=== PATIENT | male | born 1975 | race Caucasian/White ===

== ENCOUNTER 2022-05-11 17:07 | Inpatient (IN) | payer BC, SELFPAY ==
[2022-05-11] VITALS (8 sets, daily range): BP systolic 77–146; BP diastolic 43–106; PULSE 107–113; RESP 20–26; TEMP 37.4; O2SAT 90–95; BMI 27.6
--- NOTE | 2022-05-11 17:17 | CTR_ITS ---
PROCEDURE INFORMATION: Exam: CT Head Without Contrast Exam date and time: 05/11/2022 5:34 PM Age: 47 years old Clinical indication: Pain; Headache not specified TECHNIQUE: Imaging protocol: Computed tomography of the head without contrast. Radiation optimization: All CT scans at this facility use at least one of these dose optimization techniques: automated exposure control; mA and/or kV adjustment per patient size (includes targeted exams where dose is matched to clinical indication); or iterative reconstruction. COMPARISON: No relevant prior studies available. RADIATION DOSE METRICS: Total DLP (mGy-cm): 712.75 FINDINGS: Brain: Normal. No hemorrhage. Unremarkable white matter. No mass effect. Cerebral ventricles: No ventriculomegaly. Paranasal sinuses: Opacified right ethmoid air cell. Mucosal thickening in the left frontal sinus. The other sinuses are clear. Mastoid air cells: Visualized mastoid air cells are well aerated. Bones/joints: Unremarkable. No acute fracture. Soft tissues: Unremarkable. CT/CT head wo con* [id number] IMPRESSION: 1. No acute intracranial abnormality.
--- NOTE | 2022-05-11 17:17 | CTR_ITS ---
PROCEDURE INFORMATION: Exam: CTA Head With Contrast, Arteriography Exam date and time: 05/11/2022 5:37 PM Age: 47 years old Clinical indication: Headache and other: Vomiting; Additional info: Headache, posible sah TECHNIQUE: Imaging protocol: Computed tomographic angiography of the head with contrast. Exam focused on the arteries. 3D rendering (Not supervised by radiologist): MIP and/or 3D reconstructed images were created by the technologist. Radiation optimization: All CT scans at this facility use at least one of these dose optimization techniques: automated exposure control; mA and/or kV adjustment per patient size (includes targeted exams where dose is matched to clinical indication); or iterative reconstruction. Contrast material: OMNIPAQUE 350; Contrast volume: 95 ml; Contrast route: INTRAVENOUS (IV); COMPARISON: CT head wo con* [id number] 05/11/2022 5:34 PM RADIATION DOSE METRICS: Total DLP (mGy-cm): 2238.87 FINDINGS: ANTERIOR CIRCULATION: Right internal carotid artery: Unremarkable. Intracranial segment is patent with no significant stenosis. No aneurysm. Right middle cerebral artery: Unremarkable. No occlusion or significant stenosis. No aneurysm. Right anterior cerebral artery: Unremarkable. No occlusion or significant stenosis. No aneurysm. Left internal carotid artery: Unremarkable. Intracranial segment is patent with no significant stenosis. No aneurysm. Left middle cerebral artery: Unremarkable. No occlusion or significant stenosis. No aneurysm. Left anterior cerebral artery: Unremarkable. No occlusion or significant stenosis. No aneurysm. POSTERIOR CIRCULATION: Right vertebral artery: Unremarkable. No occlusion or significant stenosis. No aneurysm. Left vertebral artery: Unremarkable. No occlusion or significant stenosis. No aneurysm. Basilar artery: Unremarkable. No occlusion or significant stenosis. No aneurysm. Right posterior cerebral artery: Unremarkable. No occlusion or significant stenosis. No aneurysm. Left posterior cerebral artery: Unremarkable. No occlusion or significant stenosis. No aneurysm. Brain: No definite mass, mass effect, or midline shift. Cerebral ventricles: No ventriculomegaly. Bones/joints: Unremarkable. No acute fracture. Soft tissues: Unremarkable. PROCEDURE INFORMATION: Exam: CTA Neck With Contrast Exam date and time: 05/11/2022 5:37 PM Age: 47 years old Clinical indication: Headache and other: Vomiting; Additional info: Headache, posible sah TECHNIQUE: Imaging protocol: Computed tomographic angiography of the neck with contrast. 3D rendering (Not supervised by radiologist): MIP and/or 3D reconstructed images were created by the technologist. Radiation optimization: All CT scans at this facility use at least one of these dose optimization techniques: automated exposure control; mA and/or kV adjustment per patient size (includes targeted exams where dose is matched to clinical indication); or iterative reconstruction. Contrast material: OMNIPAQUE 350; Contrast volume: 95 ml; Contrast route: INTRAVENOUS (IV); COMPARISON: CT head wo con* [id number] 05/11/2022 5:34 PM RADIATION DOSE METRICS: Total DLP (mGy-cm): 2238.87 FINDINGS: Right common carotid artery: No stenosis. No dissection or occlusion. Right internal carotid artery: No stenosis of the extracranial segment. No dissection or occlusion. Right external carotid artery: No occlusion or stenosis of the origin. Left common carotid artery: No stenosis. No dissection or occlusion. Left internal carotid artery: No stenosis of the extracranial segment. No dissection or occlusion. Left external carotid artery: No occlusion or stenosis of the origin. Right vertebral artery: No stenosis. No dissection or occlusion. Left vertebral artery: No stenosis. No dissection or occlusion. Soft tissues: Normal. No significant soft tissue swelling. Bones/joints: No acute fracture. CT/CT angio headneck* [id number] IMPRESSION: No large vessel stenosis or occlusion. IMPRESSION: No stenosis or occlusion. REFERENCES: NASCET CRITERIA. The degree of internal carotid artery stenosis is based on NASCET criteria. Normal is no stenosis. Mild is less than 50% stenosis. Moderate is 50-69% stenosis. Severe is 70% to 99% stenosis. Total occlusion is no detectable patent lumen.
--- NOTE | 2022-05-11 17:17 | XRR_ITS ---
PROCEDURE INFORMATION: Exam: XR Chest Exam date and time: 05/11/2022 5:26 PM Age: 47 years old Clinical indication: Shortness of breath and other: N/v; Additional info: AMS TECHNIQUE: Imaging protocol: XR of the chest. Views: 1 view. COMPARISON: No relevant prior studies available. FINDINGS: Lungs: Mild atelectasis or scar in the left lung base. The right lung is clear. Pleural spaces: Unremarkable. No pleural effusion. No pneumothorax. Heart/Mediastinum: Unremarkable. No cardiomegaly. Bones/joints: Unremarkable. XR/XR chest 1V portable [id number] IMPRESSION: No acute finding.
--- NOTE | 2022-05-11 17:19 | ECG_ITS ---
[facility] Test Date: 2022-05-11 Pat Name: Kedar Coleman Department: Room: Gender: Male [employer]er: : 1975 Requested By: Norberto iMlligan Order Number: [id number] Galindo MD: Cj Sandoval M.D. Measurements Intervals [place] Rate: 111 P: 77 CO: 182 QRS: 57 QRSD: 96 T: 78 QT: 336 QTc: 457 Interpretive Statements SINUS TACHYCARDIA POSSIBLE INFERIOR MYOCARDIAL INFARCTION , PROBABLY OLD [30 ms Q WAVE IN II/aVF] No previous ECG available for comparison Electronically Signed On 05-11-2022 18:29:46 CDT by Cj Sandoval M.D. [id number]
[2022-05-11 17:22] LABS: Glucose Point of Care 105 mg/dL (70-110)
[2022-05-11] MEDS: sodium chloride 0.9% 1,000 ML 999 ML IV ×4 (17:27→18:46)
--- NOTE | 2022-05-11 17:29 | W.ED.GENADLT ---
HPI - General Adult General: Chief complaint: Nausea/Vomiting/Diarrhea Stated complaint: SOB, n/v Time Seen by Provider: 05/11/22 17:12 History of Present Illness: Patient is a 47-year-old male with with no significant past medical history presents emergency room with generalized weakness, diarrhea, headache, and fatigue. Patient tells me that yesterday night he had an episode of headache prior to going to sleep. This morning, patient has another episode of headache around 9 AM this morning. Since then, patient has not been feeling well. Patient reports significant diarrhea earlier today. Patient [place] work [place] the train when he felt very lightheaded and called his . Patient reports not feeling well and was brought to the emergency room. On arrival, patient reports mild cough and ongoing headache. Patient denies any fever or chills, runny nose, sore throat, chest pain, shortness of breath, abdominal complaints, complaints. Patient reports nausea and vomiting. Patient denies any sick contact. Patient denies any melena/hematochezia. Patient has had 2 episodes of emesis today. Earlier in triage, patient was noted to have a blood pressure 70/40 and was brought back to the emergency room immediately. The blood pressure improved to 170/111 without any intervention. Onset: yesterday night Duration:ongoing Location:home Severity:moderate Associated symptoms: Reports malaise, nausea and vomiting; Deny chest pain, dyspnea, rash or palpitations Review of Systems Const: Reports: fatigue and malaise; Denies: fever(s) or chills Eyes: Denies: change in vision ENMT: Denies: mouth pain Card: Denies: chest pain or palpitations Resp: Denies: dyspnea or non-productive cough GI: Reports: nausea, vomiting and diarrhea; Denies: abdominal pain : Denies: dysuria Musc: Denies: extremity pain Skin/Breast: Denies: rash or new lesions Neuro: Denies: weakness in extremities Psych: Reports: other (Normal mood) Marques/Lymph: Denies: easy bruising PFS ED PFSH: Medical History (Updated 05/15/22 @ 00:00 by ) Hypertension Surgical History (Updated 05/11/22 @ 22:05 by Kedar Alonso MD) History of appendectomy Family History (Updated 05/11/22 @ 22:06 by Kedar Alonso MD) Father Hypertension Social History (Updated 05/11/22 @ 22:06 by Kedar Alonso MD) Smoking and tobacco status: never smoked Alcohol intake: never Substance/Drug Use: never Physical Exam Const: COMMON NORMALS: alert HENMT: COMMON NORMALS: atraumatic HEAD & SCALP: atraumatic MOUTH: moist mucous membranes abnormal Eye: COMMON NORMALS: EOMs intact bilaterally and conjunctivae normal CONJUNCTIVA: Yes conjunctivae normal Neck/C-Spine: COMMON NORMALS: full ROM and supple Resp: COMMON NORMALS: normal respiratory effort and clear to auscultation bilaterally AUSCULTATION: clear to auscultation bilaterally Cardio: RATE: tachycardic GI: COMMON NORMALS: Soft to palpation and non-tender PALPATION: Yes Soft to palpation Extremity: COMMON NORMALS: full ROM Neuro: SENSORIUM/ORIENTATION: Yes alert MOTOR EXAM: No Abnormal motor strength present and Other motor observations present (no focal motor deficits) Psych: COMMON NORMALS: speech normal SPEECH: Yes normal speech MOOD & AFFECT: Yes euthymic mood Skin: NARRATIVE SKIN EXAM: +facial and neck flush Course Vital Signs: Vital signs: Vital Signs Temperature 97.9 F 05/14/22 11:11 Pulse Rate 74 05/14/22 11:11 Respiratory Rate 18 05/14/22 11:11 Blood Pressure 141/86 05/14/22 11:11 Pulse Oximetry 97 05/14/22 11:11 [facility] - General Adult Medical Decision Making 47-year-old male with any without any significant past medical history presenting to the emergency room with complaints of diarrhea, headache, generalized weakness nausea and vomiting since yesterday night. On physical exam, patient appears to be tachycardic and dry on exam. Patient appears to be flushed on the face and neck. Patient received 3 L of fluids. Patient complains of headache and multiple episode of emesis in the emergency room. CT head and CTA head and neck negative for any signs of dissection acute intracranial bleed or subarachnoid hemorrhage. Patient reports that his headache appears to be improved with IVF, Reglan, Benadryl, magnesium sulfate. After 3 L fluid, patient continues to be tachycardic at which point decision was made to order D-dimer/TSH and free T4. D-dimer appears to be within normal limit. Do not suspect PE. TSH/T4 within normal. Patient's headache now improved and almost gone after repeat morphine. Patient's respiratory panel came back positive for COVID. Patient noted to be satting at 88 to 89% on room air. Patient required 2 L of oxygen and this is a new oxygen requirement. At the present time, patient given patient continues persistent tachycardia and new oxygen requirement, as well as concern for dehydration inability to tolerate p.o., patient will be admitted to the hospital for rehydration. At 9 PM, performed shared decision making with family. I discussed case with patient and his . I have explained to them that patient is at risk for subarachnoid hemorrhage is very low given the fact the patient has a normal CT scan and normal CTA head and neck. Given the fact the patient also has generalized weakness, cough, diarrhea, and positive swab for COVID, headache improvement, today's presentation is unlikely to be subarachnoid brain bleed. I explained the risk of not performing LP and patient at this time elects to not undergo lumbar puncture as patient and his agree that symptoms are more consistent with COVID. However, if patient continues to have persistent headache, we will reconsider the need for LP and possible MRI. Disposition: admission Lab Data : 05/14/22 05:10 05/14/22 05:10 Radiology Impressions Chest X-Ray 05/11/22 17:17 IMPRESSION: No acute finding. Head CT 05/11/22 17:17 IMPRESSION: 1. No acute intracranial abnormality. Head/Neck CTA 05/11/22 17:17 IMPRESSION: No large vessel stenosis or occlusion. IMPRESSION: No stenosis or occlusion. REFERENCES: NASCET CRITERIA. The degree of internal carotid artery stenosis is based on NASCET criteria. Normal is no stenosis. Mild is less than 50% stenosis. Moderate is 50-69% stenosis. Severe is 70% to 99% stenosis. Total occlusion is no detectable patent lumen. Lumbar Puncture Fluoroscopy 05/12/22 08:00 IMPRESSION: Fluoroscopically guided lumbar puncture. No immediate complications Laboratory Results WBC 5.2 10^3/uL (4.0-10.0) 05/12/22 00:18 RBC 5.34 10^6/uL (4.1-5.3) H 05/12/22 00:18 Hgb 15.7 g/dL (11.7-16.6) 05/12/22 00:18 Hct 46.2 % (42.0-52.0) 05/12/22 00:18 MCV 86.5 fl (80-94) 05/12/22 00:18 MCH 29.4 pg (28.0-34.0) 05/12/22 00:18 MCHC 34.0 g/dL (30.0-36.0) 05/12/22 00:18 RDW 13.2 % (12.1-15.1) 05/12/22 00:18 Plt Count 205 10^3/cmm (130-400) 05/12/22 00:18 MPV 10.9 fL (7.4-10.4) H 05/12/22 00:18 Neut % (Auto) 79.2 % 05/12/22 00:18 Lymph % (Auto) 11.8 % 05/12/22 00:18 Elk % (Auto) 7.0 % 05/12/22 00:18 Eos % (Auto) 0.2 % 05/12/22 00:18 Baso % (Auto) 0.4 % 05/12/22 00:18 Neut # (Auto) 4.09 10^3/uL (1.8-7.7) 05/12/22 00:18 Lymph # (Auto) 0.6 10^3/uL (0.8-4.8) L 05/12/22 00:18 Elk # (Auto) 0.4 10^3/uL (0.2-0.9) 05/12/22 00:18 Eos # (Auto) 0.0 10^3/uL (0.0-0.8) 05/12/22 00:18 Baso # (Auto) 0.0 10^3/uL (0.0-0.1) 05/12/22 00:18 Nucleated RBC % (auto) 0 % 05/12/22 00:18 Nucleated RBCs # 0.0 /100WBC 05/12/22 00:18 D-Dimer 0.29 ug/mIFEU (0-0.59) 05/11/22 19:35 Sodium 137 mmol/L (136-145) 05/12/22 00:18 Potassium 3.8 mmol/L (3.5-5.1) 05/12/22 00:18 Chloride 105 mmol/L (98-107) 05/12/22 00:18 Carbon Dioxide 20 mmol/L (22-29) L 05/12/22 00:18 Anion Gap 15.8 (5-19) 05/12/22 00:18 BUN 7 mg/dL (6-20) 05/12/22 00:18 Creatinine 0.7 mg/dL (0.7-1.2) 05/12/22 00:18 GFR Calculation 120.4 mL/min (90-130) 05/12/22 00:18 Glucose 105 mg/dL (65-115) 05/12/22 00:18 POC Glucose 105 mg/dL (70-110) 05/11/22 17:18 Calculated Osmolality 282 mOsm/kg (285-295) L 05/12/22 00:18 Calcium 8.0 mg/dL (8.5-10.5) L 05/12/22 00:18 Phosphorus 2.3 mg/dL (2.5-4.5) L 05/12/22 00:18 Magnesium 2.1 mg/dL (1.7-2.3) 05/12/22 00:18 Iron 37 ug/dL (59-158) L 05/12/22 00:18 TIBC 239 mcg/dl 05/12/22 00:18 % Saturation 15.4 % (20-50) L 05/12/22 00:18 Unsat Iron Binding 202 ug/dL (112-347) 05/12/22 00:18 Total Bilirubin 1.2 mg/dL (0.15-1.2) 05/12/22 00:18 AST 47 U/L (0-40) H 05/12/22 00:18 ALT 88 U/L (0-41) H 05/12/22 00:18 Alkaline Phosphatase 69 IU/L (40-130) 05/12/22 00:18 Creatine Kinase 66 U/L (39-308) 05/11/22 17:20 Troponin T Baseline 6 ng/L (0-15) 05/11/22 17:20 Troponin T 120 Minute 7.60 ng/L (0-15) 05/11/22 19:35 Delta Troponin T 1.60 ABS# (0-10) 05/11/22 19:35 C-Reactive Protein 14.6 mg/L (0.0-4.9) H 05/12/22 00:18 Total Protein 6.8 g/dL (6.6-8.7) 05/12/22 00:18 Albumin 3.9 g/dL (3.5-5.2) 05/12/22 00:18 Globulin 2.9 g/dL (1.3-4.6) 05/12/22 00:18 Lipase 16 U/L (13-60) 05/11/22 17:20 Procalcitonin 0.22 ng/mL (0-0.5) 05/11/22 17:20 TSH 0.84 uIU/mL (0.27-4.20) 05/11/22 19:35 Free T4 1.18 ng/dL (0.82-1.77) 05/11/22 19:35 Nasal Influ A H1 2009 PCR Not detected (NOT DETECT) 05/11/22 18:26 Adenovirus (PCR) Not detected (NOT DETECT) 05/11/22 18:26 C. pneumoniae DNA (PCR) Not detected (NOT DETECT) 05/11/22 18:26 Coronavirus 229E (PCR) Not detected (NOT DETECT) 05/11/22 18:26 Human Metapneumovir PCR Not detected (NOT DETECT) 05/11/22 18:26 Influenza A (H1) PCR Not detected (NOT DETECT) 05/11/22 18:26 Influenza A (H3) PCR Not detected (NOT DETECT) 05/11/22 18:26 Influenza Type A (PCR) Not detected (NOT DETECT) 05/11/22 18: Influenza Type B (PCR) Not detected (NOT DETECT) 05/11/22 18:26 M. pneumoniae (PCR) Not detected (NOT DETECT) 05/11/22 18:26 Parainfluenza 1 (PCR) Not detected (NOT DETECT) 05/11/22 18:26 Parainfluenza 2 (PCR) Not detected (NOT DETECT) 05/11/22 18: Parainfluenza 3 (PCR) Not detected (NOT DETECT) 05/11/22 18:26 Parainfluenza 4 (PCR) Not detected (NOT DETECT) 05/11/22 18:26 RSV Type A (PCR) Not detected (NOT DETECT) 05/11/22 18:26 RSV Type B (PCR) Not detected (NOT DETECT) 05/11/22 18:26 Entero/Rhino (PCR) Not detected (NOT DETECT) 05/11/22 18:26 SARS-CoV-2 (PCR) Detected (NOT DETECT) A 05/11/22 18:26 Imaging Data Other Imaging: Radiologist's impression: [address] [place] [address] CT Scan Report Signed Patient: Kedar Coleman Unit #: [id number] : 1975 Age/Sex: 47 / M ADM Date: 05/11/22 Loc: ER Room/Bed: Attending Dr: Ordering Provider/Ordering MD: Norberto Milligan MD Date of Service: 05/11/22 Procedure(s): CT angio headneck* [id number] Accession Number(s): [id number] Report Number: [id number] PROCEDURE INFORMATION: Exam: CTA Head With Contrast, Arteriography Exam date and time: 05/11/2022 5:37 PM Age: 47 years old Clinical indication: Headache and other: Vomiting; Additional info: Headache, posible sah TECHNIQUE: Imaging protocol: Computed tomographic angiography of the head with contrast. Exam focused on the arteries. 3D rendering (Not supervised by radiologist): MIP and/or 3D reconstructed images were created by the technologist. Radiation optimization: All CT scans at this facility use at least one of these dose optimization techniques: automated exposure control; mA and/or kV adjustment per patient size (includes targeted exams where dose is matched to clinical indication); or iterative reconstruction. Contrast material: OMNIPAQUE 350; Contrast volume: 95 ml; Contrast route: INTRAVENOUS (IV);? COMPARISON: CT head wo con* [id number] 05/11/2022 5:34 PM RADIATION DOSE METRICS: Total DLP (mGy-cm): 2238.87 FINDINGS: ANTERIOR CIRCULATION: Right internal carotid artery: Unremarkable. Intracranial segment is patent with no significant stenosis. No aneurysm. Right middle cerebral artery: Unremarkable. No occlusion or significant stenosis. No aneurysm.? Right anterior cerebral artery: Unremarkable. No occlusion or significant stenosis. No aneurysm.? Left internal carotid artery: Unremarkable. Intracranial segment is patent with no significant stenosis. No aneurysm. Left middle cerebral artery: Unremarkable. No occlusion or significant stenosis. No aneurysm.? Left anterior cerebral artery: Unremarkable. No occlusion or significant stenosis. No aneurysm.? POSTERIOR CIRCULATION: Right vertebral artery: Unremarkable. No occlusion or significant stenosis. No aneurysm.? Left vertebral artery: Unremarkable. No occlusion or significant stenosis. No aneurysm.? Basilar artery: Unremarkable. No occlusion or significant stenosis. No aneurysm. Right posterior cerebral artery: Unremarkable. No occlusion or significant stenosis. No aneurysm.? Left posterior cerebral artery: Unremarkable. No occlusion or significant stenosis. No aneurysm.? Brain: No definite mass, mass effect, or midline shift. Cerebral ventricles: No ventriculomegaly. Bones/joints: Unremarkable. No acute fracture. Soft tissues: Unremarkable. PROCEDURE INFORMATION: Exam: CTA Neck With Contrast Exam date and time: 05/11/2022 5:37 PM Age: 47 years old Clinical indication: Headache and other: Vomiting; Additional info: Headache, posible sah TECHNIQUE: Imaging protocol: Computed tomographic angiography of the neck with contrast. 3D rendering (Not supervised by radiologist): MIP and/or 3D reconstructed images were created by the technologist. Radiation optimization: All CT scans at this facility use at least one of these dose optimization techniques: automated exposure control; mA and/or kV adjustment per patient size (includes targeted exams where dose is matched to clinical indication); or iterative reconstruction. Contrast material: OMNIPAQUE 350; Contrast volume: 95 ml; Contrast route: INTRAVENOUS (IV);? COMPARISON: CT head wo con* [id number] 05/11/2022 5:34 PM RADIATION DOSE METRICS: Total DLP (mGy-cm): 2238.87 FINDINGS: Right common carotid artery: No stenosis. No dissection or occlusion. Right internal carotid artery: No stenosis of the extracranial segment. No dissection or occlusion. Right external carotid artery: No occlusion or stenosis of the origin.? Left common carotid artery: No stenosis. No dissection or occlusion. Left internal carotid artery: No stenosis of the extracranial segment. No dissection or occlusion. Left external carotid artery: No occlusion or stenosis of the origin.? Right vertebral artery: No stenosis. No dissection or occlusion. Left vertebral artery: No stenosis. No dissection or occlusion. Soft tissues: Normal. No significant soft tissue swelling. Bones/joints: No acute fracture. CT/CT angio headneck* [id number] IMPRESSION: No large vessel stenosis or occlusion. ? ? IMPRESSION: No stenosis or occlusion. ? REFERENCES: NASCET CRITERIA. The degree of internal carotid artery stenosis is based on NASCET criteria. Normal is no stenosis. Mild is less than 50% stenosis. Moderate is 50-69% stenosis. Severe is 70% to 99% stenosis. Total occlusion is no detectable patent lumen. ? Dictated By: Greg Lechuga Signed By: Greg Lechuga Signed Date/Time: 05/11/22 182 DD/ [address] [place] [address] [address] [address] Scan Report Signed Patient: Kedar Coleman Unit #: [id number] : 1975 Age/Sex: 47 / M ADM Date: 05/11/22 Loc: ER Room/Bed: Attending Dr: Ordering Provider/Ordering MD: Norberto Milligan MD Date of Service: 05/11/22 Procedure(s): CT head wo con* [id number] Accession Number(s): [id number] Report Number: [id number] PROCEDURE INFORMATION: Exam: CT Head Without Contrast Exam date and time: 05/11/2022 5:34 PM Age: 47 years old Clinical indication: Pain; Headache not specified TECHNIQUE: Imaging protocol: Computed tomography of the head without contrast. Radiation optimization: All CT scans at this facility use at least one of these dose optimization techniques: automated exposure control; mA and/or kV adjustment per patient size (includes targeted exams where dose is matched to clinical indication); or iterative reconstruction. COMPARISON: No relevant prior studies available. RADIATION DOSE METRICS: Total DLP (mGy-cm): 712.75 FINDINGS: Brain: Normal. No hemorrhage. Unremarkable white matter. No mass effect. Cerebral ventricles: No ventriculomegaly. Paranasal sinuses: Opacified right ethmoid air cell. Mucosal thickening in the left frontal sinus. The other sinuses are clear. Mastoid air cells: Visualized mastoid air cells are well aerated. Bones/joints: Unremarkable. No acute fracture. Soft tissues: Unremarkable. CT/CT head wo con* [id number] IMPRESSION: 1. No acute intracranial abnormality.? ? Dictated By: Greg Lechuga Signed By: Greg Lechuga Signed Date/Time: 05/11/221811 DD/ 33 Kedar Coleman??47??M??1975 ? Allergy/Adv: No Known Allergies Close Head/Neck CTA (Signed) Greg Lechuga - 05/11/[address] (Signed) Greg Lechuga - 05/11/22 Chest X-Ray (Signed) Greg Lechuga - 05/11/22 Launch?[employer] [address] [place] [address] XRay Report Signed Patient: Kedar Coleman Unit #: [id number] : 1975 Age/Sex: 47 / M ADM Date: 05/11/22 Loc: ER Room/Bed: Attending Dr: Ordering Provider/Ordering MD: Norberto Milligan MD Date of Service: 05/11/22 Procedure(s): XR chest 1V portable [id number] Accession Number(s): [id number] Report Number: [id number] PROCEDURE INFORMATION: Exam: XR Chest Exam date and time: 05/11/2022 5:26 PM Age: 47 years old Clinical indication: Shortness of breath and other: N/v; Additional info: AMS TECHNIQUE: Imaging protocol: XR of the chest. Views: 1 view. COMPARISON: No relevant prior studies available. FINDINGS: Lungs: Mild atelectasis or scar in the left lung base. The right lung is clear. Pleural spaces: Unremarkable. No pleural effusion. No pneumothorax. Heart/Mediastinum: Unremarkable. No cardiomegaly. Bones/joints: Unremarkable. XR/XR chest 1V portable [id number] IMPRESSION: No acute finding. ? 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
[2022-05-11] MEDS: iohexol 350 mg/mL 100 mL Btl IV (17:35)
[2022-05-11] MEDS: ondansetron 2 mg/ML SDV 2 mL 4 MG IVP (17:45)
[2022-05-11] MEDS: morphine 4 mg/mL SDV 1 mL IVP ×2 (17:45→19:40)
[2022-05-11 18:00] LABS: Basophils % 0.5 %; Eosinophils % 0.5 %; Hematocrit 50.4 % (42.0-52.0); Hemoglobin 17.1 g/dL (11.7-16.6); Lymphocytes # 0.5 10^3/uL (0.8-4.8); Lymphocytes % 7.5 %; Mean Corpuscular HGB Conc 33.9 g/dL (30.0-36.0); Mean Corpuscular Hemoglobin 29.5 pg (28.0-34.0); Mean Platelet Volume 11.1 fL (7.4-10.4); Monocytes % 15.6 %; Neutrophils # 4.97 10^3/uL (1.8-7.7); Neutrophils % 74.5 %; Nucleated Red Blood Cells % 0 %; Platelet Count 250 10^3/cmm (130-400); Red Blood Count 5.79 10^6/uL (4.1-5.3); Red Cell Distribution Width 13.2 % (12.1-15.1); White Blood Count 6.7 10^3/uL (4.0-10.0)
[2022-05-11] MEDS: diphenhydrAMINE 50 mg/mL SDV 1mL IVP (18:11)
[2022-05-11] MEDS: metoclopramide 5 mg/mL SDV 2 mL 10 MG IVP (18:11)
[2022-05-11] MEDS: magnesium sulfate premix 2 GM/50 ML PIGGYBACK IV (18:12)
[2022-05-11 18:26] LABS: Troponin(5th) Baseline 6 ng/L (0-15)
[2022-05-11 18:29] LABS: Alanine Aminotransferase 107 U/L (0-41); Albumin Level 4.9 g/dL (3.5-5.2); Alkaline Phosphatase 85 IU/L (40-130); Aspartate Amino Transferase 57 U/L (0-40); Blood Urea Nitrogen 8 mg/dL (6-20); Calcium 9.3 mg/dL (8.5-10.5); Carbon Dioxide 23 mmol/L (22-29); Chloride 99 mmol/L (98-107); Creatine Phosphokinase 66 U/L (39-308); Globulin 2.8 g/dL (1.3-4.6); Glomerular Filtration Rate 120.4 mL/min (90-130); Glucose 91 mg/dL (65-115); Lipase 16 U/L (13-60); Osmolality Calculated 282 mOsm/kg (285-295); Sodium 137 mmol/L (136-145); Total Bilirubin 1.7 mg/dL (0.15-1.2); Total Protein 7.7 g/dL (6.6-8.7)
--- NOTE | 2022-05-11 18:49 | PC.NURSE ---
PT placed on continuous NIBP, SpO2, and CM
--- NOTE | 2022-05-11 19:19 | ECG_ITS ---
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 Measurements Intervals [place] Rate: 112 P: 79 NC: 176 QRS: 65 QRSD: 90 T: 82 QT: 347 QTc: 475 Interpretive Statements SINUS TACHYCARDIA POSSIBLE RIGHT VENTRICULAR CONDUCTION DELAY [RSR (QR) IN V1/V2] ABNORMAL RHYTHM ECG Compared to ECG 05/11/2022 17:15:08 Myocardial infarct finding no longer present Electronically Signed On 05-12-2022 22:27:10 CDT by Sofia Hughes M.D. [id number]
[2022-05-11 20:08] LABS: D Dimer 0.29 ug/mIFEU (0-0.59)
[2022-05-11 20:22] LABS: Thyroid Stimulating Hormone 0.84 uIU/mL (0.27-4.20)
[2022-05-11 20:25] LABS: Adenovirus Not Detected (NOT DETECT); Chlamydia Pneumoniae Not Detected (NOT DETECT); Coronavirus 229E,HKU1,NL63,OC4 Not Detected (NOT DETECT); Human Metapneumovirus Not Detected (NOT DETECT); Human Rhinovirus/Enterovirus Not Detected (NOT DETECT); Influenza A Not Detected (NOT DETECT); Influenza A H1 Not Detected (NOT DETECT); Influenza A H1-2009 Not Detected (NOT DETECT); Influenza A H3 Not Detected (NOT DETECT); Influenza B Not Detected (NOT DETECT); Mycoplasma Pneumoniae Not Detected (NOT DETECT); Parainfluenza Virus Type 1 Not Detected (NOT DETECT); Parainfluenza Virus Type 2 Not Detected (NOT DETECT); Parainfluenza Virus Type 3 Not Detected (NOT DETECT); Parainfluenza Virus Type 4 Not Detected (NOT DETECT); Respiratory Syncytial Virus A Not Detected (NOT DETECT); Respiratory Syncytial Virus B Not Detected (NOT DETECT); SARS-COV-2 Detected (NOT DETECT)
[2022-05-11] MEDS: dexamethasone 10 mg/mL INJ 6 MG IVP (21:24)
--- NOTE | 2022-05-11 21:24 | PM.HP ---
Providers/Chief Complaint Admitting Physician: Kedar Alonso MD Chief Complaint: SOB, n/v History of Present Illness Kedar Coleman is a 47 year old male with a past medical history significant for hypertension who presents with severe headache x2 days. Patient reports he was in his usual state of health until yesterday when he developed a severe headache. He describes the headache as diffuse starting behind the eyes and extending down to the neck. He endorses associated symptoms of nausea, lightheadedness recurrent emesis, fevers, generalized malaise, and nonproductive cough. He endorses nuchal rigidity. He reports he has not been able to hold down anything today. Patient denies any sick contacts. He denies any recent travels. In the ED, he was initially hypotensive which resolved without initial intervention, became hypertensive. He was found to be tachycardic with acute hypoxia requiring 2 L nasal cannula. Head and CT head neck angio were negative for acute findings. He was found to have COVID-19 infection. Review of Systems Narrative: A complete review of systems was obtained and is negative except as stated in HPI. Medications/Allergies Home Medications Medication Instructions Recorded Confirmed Last Taken Type metoprolol succinate 25 mg 25 mg PO DAILY 05/11/22 05/11/22 05/11/22 History tablet,extended release 24 hr Allergies Allergy/AdvReac Type Severity Reaction Status Date / Time No Known Allergies Allergy Verified 05/11/22 17:47 PFSH Acute PFSH: Medical History (Updated 05/11/22 @ 22:05 by Kedar Alonso MD) Hypertension Surgical History (Updated 05/11/22 @ 22:05 by Kedar Alonso MD) History of appendectomy Family History (Updated 05/11/22 @ 22:06 by Kedar Alonso MD) Father Hypertension Social History (Updated 05/11/22 @ 22:06 by Kedar Alonso MD) Smoking and tobacco status: never smoked Alcohol intake: never Substance/Drug Use: never Vitals/I&O/Wt Last Vital Signs Temp 99.4 F 05/11/22 17:13 Pulse 107 H 05/11/22 18:46 Resp 24 H 05/11/22 18:46 BP 146/96 05/11/22 18:46 Pulse Ox 94 05/11/22 18:46 06/14/22 06/14/22 06/14/22 06:59 14:59 22:59 Intake Total 1366.35 / 1366.35 Output Total 1400 / 1400 Balance -33.65 / -33.65 Weight last 48 hrs Weight 97.522 kg Physical Exam Narrative: General: Patient appears acutely ill. Head: Normocephalic. Atraumatic. EOM intact. Nuchal rigidity is present. Dry mucous membranes. Neck: No JVD. Cardiovascular: RRR. Tachycardic. No gallops. No murmurs. No peripheral edema. Lungs: Breath sounds are diminished at the bilateral bases, no use of accessory muscles, no crackles or wheezes. Skin: No jaundice. No rashes. Abdomen: Normal bowel sounds, abdomen soft and nontender. Genito Urinary: Genital exam not performed since complaints not related. Rectal: Rectal exam not performed since no symptoms indicated blood loss. Extremeties: No cyanosis or clubbing. Musculoskeletal: 5/5 strength, normal range of motion, no swollen or erythematous joints. Neurological: Moves all 4 extremities. No myoclonus. Data : 05/11/22 17:20 05/11/22 17:20 A&P Assessment and plan (1) Headache: Presentation may be secondary to COVID-19 infection only, however cannot rule out meningitis without LP Start broad-spectrum antibiotics with vancomycin and ceftriaxone at meningitis dosing Start dexamethasone at meningitis dosing Blood cultures x2, procalcitonin, and CRP IR consult ordered for LP Serial neuro exams Status: Acute (2) COVID: Associated with acute toxic respiratory insufficiency Continuous pulse oximetry monitoring Remdesivir Dexamethasone as above Pulmicort Status: Acute (3) Dehydration: Start IV fluids Status: Acute (4) Vomiting: Antiemetics ordered IV fluids Clear liquid diet, advance as tolerated Status: Acute (5) Hypertension: Continue home metoprolol Monitor blood pressure closely as it was quite labile as it was labile while in the emergency department Status: Acute (6) Transaminitis: Suspect secondary to COVID infection Continue to monitor closely, especially while on remdesivir Status: Acute Plan DVT prophylaxis: Lovenox CODE STATUS: Full code Attestations Medical Necessity Statement*: Patient presents with multiple complaints, found to have COVID-19 infection and suspected meningitis with expected hospitalization not to cross 2 midnights. Coding Level of Care Code Acute Travel Registered Nurse [facility] for [facility] Diagnoses Dehydration E86.0 COVID U07.1 Vomiting R11.10 Hypertension I10 Headache R51.9 Transaminitis R74.01
[2022-05-11] MEDS: remdesivir 200 MG in sodium chloride 0.9% (100 ml) 60 ML 100 MG IV (22:07)
[2022-05-11 22:08] LABS: C Reactive Protein 13.5 mg/L (0.0-4.9)
[2022-05-11 22:16] LABS: Procalcitonin 0.22 ng/mL (0-0.5)
[2022-05-12] VITALS (15 sets, daily range): BP systolic 115–139; BP diastolic 68–86; PULSE 73–104; RESP 14–20; TEMP 36.4–37.7; O2SAT 93–98
[2022-05-12 00:11] LABS: Free T4 Free Thyroxine 1.18 ng/dL (0.82-1.77)
[2022-05-12] MEDS: cefTRIAXone 2,000 MG in sodium chloride 0.9% (plus) 50 ML 100 MG IV ×2 (00:44→13:18)
[2022-05-12] MEDS: enoxaparin 40 mg/0.4 mL Syringe SUBCUT (00:45)
[2022-05-12] MEDS: pantoprazole 40 mg SDV IVP (00:45)
[2022-05-12] MEDS: sodium chloride 0.9% 1,000 ML 100 ML IV ×2 (00:45→08:58)
[2022-05-12 00:51] LABS: Basophils % 0.4 %; Eosinophils % 0.2 %; Hematocrit 46.2 % (42.0-52.0); Hemoglobin 15.7 g/dL (11.7-16.6); Lymphocytes # 0.6 10^3/uL (0.8-4.8); Lymphocytes % 11.8 %; Mean Corpuscular Hemoglobin 29.4 pg (28.0-34.0); Mean Corpuscular Volume 86.5 fl (80-94); Mean Platelet Volume 10.9 fL (7.4-10.4); Monocytes # 0.4 10^3/uL (0.2-0.9); Neutrophils # 4.09 10^3/uL (1.8-7.7); Neutrophils % 79.2 %; Nucleated Red Blood Cells % 0 %; Platelet Count 205 10^3/cmm (130-400); Red Blood Count 5.34 10^6/uL (4.1-5.3); Red Cell Distribution Width 13.2 % (12.1-15.1); White Blood Count 5.2 10^3/uL (4.0-10.0)
[2022-05-12 01:00] LABS: Alanine Aminotransferase 88 U/L (0-41); Albumin Level 3.9 g/dL (3.5-5.2); Alkaline Phosphatase 69 IU/L (40-130); Anion Gap 15.8 (5-19); Aspartate Amino Transferase 47 U/L (0-40); Blood Urea Nitrogen 7 mg/dL (6-20); Carbon Dioxide 20 mmol/L (22-29); Chloride 105 mmol/L (98-107); Globulin 2.9 g/dL (1.3-4.6); Glomerular Filtration Rate 120.4 mL/min (90-130); Glucose 105 mg/dL (65-115); Magnesium 2.1 mg/dL (1.7-2.3); Osmolality Calculated 282 mOsm/kg (285-295); Phosphorus 2.3 mg/dL (2.5-4.5); Potassium 3.8 mmol/L (3.5-5.1); Sodium 137 mmol/L (136-145); Total Bilirubin 1.2 mg/dL (0.15-1.2); Total Protein 6.8 g/dL (6.6-8.7)
--- NOTE | 2022-05-12 01:04 | PC.PHAR ---
Pharmacokinetic dosing service Date: 05/12/22 Time: 99 Objective: Patient: Kedar Coleman Floor: 268[address]1 Age: 47 yo Serum creatinine: 0.7 mg/dL Height: 74.0 Inches Weight (kg): 97.522 Diagnosis: Relevant medical/social history: Cultures and sensitivities: Other labs: Assessment: IBW (kg): 82.20 Dosing wt(kg): 97.522 Estimated Creatinine clearance (ml/min): 130 Clearance limited to 130 ml/min to reduce risk of overdosing. CRCL method: Cockcroft and Gault using ibw(default). Drug selected: Vancomycin Loading dose (mg): 0 Vd (liters): 87.8 (factor used: 0.9 L/kg) Ramos (hr-1): 0.112 Half life (hrs): 6.19 Recommended dose: 1500 mg Interval: 8 hrs Infusion time (hrs): 1.5 Predicted peak (mcg/mL): 26.6 Predicted trough (mcg/mL): 12.84 Total body weight is being used for vancomycin dosing. Renal function is stable [ ] /unstable [ ] Recommendations: Give Vancomycin 1500 mg q 8 hrs with an expected Cpeak of 26.6 mcg/ml and an expected Ctrough of 12.84 mcg/ml Renal dosing of other antibiotics (review renal dosing of other medications and list guidelines here): Thank you for the consult, will continue to follow. Signature: Geena Valencia [facility]
[2022-05-12] MEDS: dexamethasone 10 mg/mL INJ IVP ×4 (01:16→20:40)
--- NOTE | 2022-05-12 08:00 | FL_ITS ---
WS: [id number] LUMBAR PUNCTURE CLINICAL INFORMATION: Rule out meningitis COMPARISON: None. TECHNIQUE: Informed consent: The procedure and its potential risk and complications were discussed with the magalis ent. Verbal and written consent was obtained. Timeout: A timeout was performed to confirm correct patient, procedure, and site. Patient was prepped and draped in the usual sterile fashion. Lidocaine 1% was used for local anesthes ia. Utilizing fluoroscopic guidance, a 3.5 inch 22-gauge spinal needle was advanced into the subarach noid space at L3-L4 via Left oblique sublaminar approach. Free flow of clear CSF was obtained. 7 cc o f CSF was collected and sent the lab for further analysis. FLUOROSCOPIC TIME: 0.1 # of spot films: 0 FL/FL guided lumbarpunc dx* [id number] IMPRESSION: Fluoroscopically guided lumbar puncture. No immediate complications
[2022-05-12] MEDS: metoprolol succinate ER (24 HR) 25 mg Tablet PO (08:58)
[2022-05-12] MEDS: budesonide 0.5 mg/2 mL Neb INHALATION (10:16)
[2022-05-12] MEDS: acetaminophen 325 mg Tablet 650 MG PO ×2 (10:56→18:14)
[2022-05-12 11:18] LABS: C Reactive Protein 14.6 mg/L (0.0-4.9)
[2022-05-12 11:51] LABS: Iron 37 ug/dL (59-158); Percent Saturation 15.4 % (20-50); Total Iron Binding Capacity 239 mcg/dl; Unsaturated Iron Binding 202 ug/dL (112-347)
[2022-05-12] MEDS: morphine 4 mg/mL SDV 1 mL 2 MG IVP ×3 (11:51→20:40)
[2022-05-12 13:44] LABS: Glucose CSF 82 mg/dL (40-70); Total Protein CSF 23 mg/dL (15-45)
[2022-05-12 13:56] LABS: CSF Mononuclear # 0.001 10^3/uL (50-90); Mononuclear WBC CSF % 50 % (50-90); Polynuclear Cells ,CSF # 0.001 10^3/uL (0-10); Polynuclear WBC CSF % 50 % (0-10); Red Blood Cell CSF 0 10^3/uL (0-0); White Blood Cell CSF 2 /uL (0-5)
--- NOTE | 2022-05-12 14:06 | PM.PN ---
Subjective Subjective: Admitted overnight. Seen with family at bedside. States he is feeling better. Headache is better. States still light is bothering him some. Blinds not drawn in the room. On asking if the light coming from out of the window is bothering him he states not really . Currently denies any vomiting but complains of nausea. T-max since last night 99.9 Fahrenheit. Vitals/I&O/Wt Last Vital Signs Temp 98.1 F 05/12/22 11:21 Pulse 92 05/12/22 11:21 Resp 16 05/12/22 11:51 BP 121/73 05/12/22 11:21 Pulse Ox 98 05/12/22 11:21 05/11/22 05/12/22 05/12/22 22:59 06:59 14:59 Intake Total 1366.35 / 1366.35 780 / 2146.35 3851.667 / 3851.667 Output Total 1400 / 1400 Balance -33.65 / -33.65 780 / 746.35 3851.667 / 3851.667 Weight last 48 hrs Weight 99.881 kg Weight 97.522 kg Physical Exam Narrative: General: No acute distress, AO x3, slightly aggravated but cooperative Head: Normocephalic. Atraumatic. EOM intact. Nuchal rigidity is present. Dry mucous membranes. Neck: No JVD. Cardiovascular: RRR. Tachycardic. No gallops. No murmurs. No peripheral edema. Lungs: Breath sounds are diminished at the bilateral bases, no use of accessory muscles, no crackles or wheezes. Skin: No jaundice. No rashes. Abdomen: Normal bowel sounds, abdomen soft and nontender. Genito Urinary: Genital exam not performed since complaints not related. Rectal: Rectal exam not performed since no symptoms indicated blood loss. Extremeties: No cyanosis or clubbing. Musculoskeletal: 5/5 strength, normal range of motion, no swollen or erythematous joints. Neurological: Moves all 4 extremities. No myoclonus. Data : 05/12/22 00:18 05/12/22 00:18 Micro: Microbiology 05/11/22 00:20 Blood Culture - Preliminary Blood SPECIMEN COLLECTED 05/11/22 00:18 Blood Culture - Preliminary Blood SPECIMEN COLLECTED A&P Assessment and plan (1) COVID: Status: Acute (2) Headache: Status: Acute (3) Meningitis: Status: Suspected (4) Transaminitis: Status: Acute (5) Hypertension: Status: Acute Plan Headache: Meningitis not ruled out given the history of headache, nuchal rigidity, nausea and slight photophobia. Cannot rule out aseptic meningitis given COVID-19 positive. Bacterial meningitis not ruled out currently. Tylenol for pain every 6 hourly as needed, morphine 1 mg every 4 hours as needed. Awaiting lumbar puncture. CSF studies to be ordered. For now continue with antibiotics for bacterial meningitis with vancomycin and ceftriaxone. Check MRSA swab, urinalysis, urine Legionella, bacterial antigen. Will de-escalate antibiotics as per CSF studies and culture results. COVID-19: On room air currently. Headache could be secondary to COVID-19 versus possible aseptic meningitis. Continue with high-dose of dexamethasone started yesterday for meningitis. Remdesivir to finish a 5-day course. Start on Advair, Spiriva. Incentive spirometry. Keep saturation over 88%. Transaminitis: Could be secondary to COVID-19. Continue to monitor daily. Medical reconciliation done. Analgesia: Tylenol every 6 hours, morphine 1 every 4 hours as needed Glycemic control: Not needed Nutrition: Regular CODE STATUS: Full code PUD prophylaxis: Protonix DVT prophylaxis: Lovenox post lumbar puncture Discharge planning: Within next 48 to 72 hours depending on blood culture results once completed course of remdesivir on and off antibiotics depending on CSF studies for meningitis. [facility]. 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
[2022-05-12 14:13] LABS: Cyto Order Verification No Order
[2022-05-12 14:19] LABS: Appearance CSF CLEAR (CLEAR); Color CSF COLORLESS (COLORLESS)
[2022-05-12] MEDS: benzonatate 100 mg Capsule PO ×2 (15:30→22:23)
[2022-05-12] MEDS: remdesivir 100 MG in sodium chloride 0.9% (100 ml) 80 ML IV (18:15)
[2022-05-12] MEDS: ferrous gluconate 324 mg Tablet PO (18:15)
[2022-05-12 20:18] LABS: Add Urine Microscopic? NO; Charge for UA Resulting for Rev
[2022-05-12 20:21] LABS: Bilirubin Urine Neg (Negative); Blood Urine Neg (Negative); Glucose Urine UA 4+ (Normal); Ketones Urine Negative (Negative); Leukocyte Esterase Urine Negative (Negative); Nitrate Urine Negative (Negative); Protein Urine Neg (Negative); Urine Appearance Clear (CLEAR); Urine Color Colorless (Yellow); Urobilinogen Urine Norm (Negative); pH Urine 5 (5-7)
[2022-05-13] VITALS (13 sets, daily range): BP systolic 123–155; BP diastolic 76–86; PULSE 59–85; RESP 14–18; TEMP 36.4–36.7; O2SAT 94–98
[2022-05-13] MEDS: sodium chloride 0.9% 1,000 ML 100 ML IV ×2 (00:45→08:35)
[2022-05-13] MEDS: cefTRIAXone 2,000 MG in sodium chloride 0.9% (plus) 50 ML 100 MG IV (00:51)
[2022-05-13] MEDS: acetaminophen 325 mg Tablet 650 MG PO (00:56)
[2022-05-13 01:08] LABS: Basophils % 0.1 %; Hematocrit 45.1 % (42.0-52.0); Lymphocytes # 0.7 10^3/uL (0.8-4.8); Lymphocytes % 7.4 %; Mean Corpuscular HGB Conc 35.5 g/dL (30.0-36.0); Mean Corpuscular Hemoglobin 30.2 pg (28.0-34.0); Mean Corpuscular Volume 85.1 fl (80-94); Mean Platelet Volume 10.9 fL (7.4-10.4); Monocytes # 0.6 10^3/uL (0.2-0.9); Monocytes % 6.6 %; Neutrophils # 7.94 10^3/uL (1.8-7.7); Neutrophils % 85.7 %; Nucleated Red Blood Cells % 0 %; Platelet Count 215 10^3/cmm (130-400); Red Cell Distribution Width 12.9 % (12.1-15.1); White Blood Count 9.3 10^3/uL (4.0-10.0)
[2022-05-13 01:19] LABS: Estmated Average Glucose 97
[2022-05-13 01:23] LABS: Alanine Aminotransferase 77 U/L (0-41); Albumin Level 3.9 g/dL (3.5-5.2); Alkaline Phosphatase 80 IU/L (40-130); Aspartate Amino Transferase 34 U/L (0-40); Blood Urea Nitrogen 11 mg/dL (6-20); C Reactive Protein 10.7 mg/L (0.0-4.9); Calcium 8.7 mg/dL (8.5-10.5); Carbon Dioxide 22 mmol/L (22-29); Chloride 103 mmol/L (98-107); Chol HDL Ratio 3.44 mg/dL (1.0-5.00); Cholesterol 117 mg/dL (0-200); Globulin 3.1 g/dL (1.3-4.6); Glomerular Filtration Rate 143.8 mL/min (90-130); Glucose 145 mg/dL (65-115); HDL Cholesterol 34 mg/dL (60-100); LDL Cholesterol Calculated 64 mg/dL (50-129); Osmolality Calculated 286 mOsm/kg (285-295); Sodium 137 mmol/L (136-145); Total Bilirubin 0.5 mg/dL (0.15-1.2); Triglycerides 97 mg/dL (0-150); VLDL Cholestrol Calculation 19 mg/dL (0-30)
[2022-05-13] MEDS: pantoprazole 40 mg SDV IVP ×2 (01:30→23:11)
[2022-05-13 01:32] LABS: Anion Gap 15.5 (5-19); Potassium 3.5 mmol/L (3.5-5.1)
[2022-05-13] MEDS: dexamethasone 10 mg/mL INJ IVP ×2 (02:40→08:33)
[2022-05-13] MEDS: morphine 4 mg/mL SDV 1 mL 2 MG IVP ×3 (02:40→12:38)
[2022-05-13 04:00] LABS: Bacillus cereus group Not Detected (NOT DETECT); Bacillus subtillis group Not Detected (NOT DETECT); Corynebacterium Not Detected (NOT DETECT); Cutibacterium acnes (P.acnes) Not Detected (NOT DETECT); Enterococcus Not Detected (NOT DETECT); Enterococcus faecalis Not Detected (NOT DETECT); Enterococcus faecium Not Detected (NOT DETECT); Lactobacillus species Not Detected (NOT DETECT); Listeria Not Detected (NOT DETECT); Listeria monocytogenes Not Detected (NOT DETECT); Micrococcus Not Detected (NOT DETECT); Pan Candida Not Detected (NOT DETECT); Pan Gram-Negative Not Detected (NOT DETECT); Staphylococcus epidermidis Not Detected (NOT DETECT); Staphylococcus lugdunensis Not Detected (NOT DETECT); Staphylococcus species Detected (NOT DETECT); Streptococcus agalactiae Not Detected (NOT DETECT); Streptococcus anginosus group Not Detected (NOT DETECT); Streptococcus pneumoniae Not Detected (NOT DETECT); Streptococcus pyogenes Not Detected (NOT DETECT); Streptococcus species Not Detected (NOT DETECT); mecA Detected (NOT DETECT); mecC Not Detected (NOT DETECT)
[2022-05-13] MEDS: benzonatate 100 mg Capsule PO ×3 (08:33→21:15)
[2022-05-13] MEDS: zinc gluconate 50 mg Tablet PO (08:33)
[2022-05-13] MEDS: ferrous gluconate 324 mg Tablet PO ×2 (08:33→18:29)
[2022-05-13] MEDS: metoprolol succinate ER (24 HR) 25 mg Tablet PO (08:33)
--- NOTE | 2022-05-13 09:59 | PC.CHAP ---
Pastoral Care Encounter/Spiritual Assessment Type of Contact [] Declined hand hide stretcher visit [] Patient/Family/Request visit [] Outpatient visit [] Follow-up visit [] Physician referral [] Code/Alert [] Routine visit [] Staff referral [] Actively dying [] Patient sleeping [] Family support [] [] Out of room [] Palliative care [] [] Receiving care in room [] Pre-surgical visit [] Trauma [] Long length of stay [] ICU visit [x] Other: Isolation Relational/Emotional Strength [] Patient feels connected with others/family/visitors/staff [] Distress [] Loneliness/isolation [] Abandonment Spirituality of Patient [] Person of Jennifer [] Attends [employer] of their Jennifer [] Believes in Prayer [] Reads Bible or Holiness materials [] There are Spiritual issues to be addressed [employer]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 [] Prayer [] Active listening [] Non-anxious presence [] Spiritual/emotional support [] Crisis/trauma care [] Spiritual counseling [] Bereavement support [] Provided bereavement packet [] Provided Bible/devotional materials [] Provided toy/stuffed animal, coloring book to patient or family member [] Provided Communion [] Anointing/[place] [] Salvation [] Completed spiritual assessment [] Other: Impact on Illness or Injury [] Angry [] Fearful [] Anxious [] Often cries [] Exhaustion [] Unable to work [] Unable to attend mu-ism [] Unable to walk/stand [] Unable to read [] Unable to drive [] Unable to eat/drink [] Unable to sleep [] Unable to be with family [] Patient intubated [] Other: Summary Isolation Time spent with patient 5 mins
--- NOTE | 2022-05-13 15:42 | P.PN_ITS ---
Subjective Subjective: No acute events overnight. Seen with at bedside. States feeling better. But slightly weak. States he got short of breath on taking shower yesterday. States headache is better. Denies any nausea, vomiting, headache. Had BM today. Has remained hemodynamically stable and afebrile. Vitals/I&O/Wt Last Vital Signs Temp 97.9 F 05/13/22 15:14 Pulse 72 05/13/22 15:14 Resp 14 05/13/22 15:14 BP 136/80 05/13/22 15:14 Pulse Ox 94 05/13/22 15:14 05/13/22 05/13/22 05/13/22 06:59 14:59 22:59 Intake Total 1101.666 / 6601.000 653.333 / 653.333 Balance 1101.666 / 6601.000 653.333 / 653.333 Weight last 48 hrs Weight 99.881 kg Weight 97.522 kg Physical Exam Narrative: General: No acute distress, AO x3, Head: Normocephalic. Atraumatic. EOM intact. No nuchal rigidity is present. Neck: No JVD. Cardiovascular: RRR. Tachycardic. No gallops. No murmurs. No peripheral edema. Lungs: Breath sounds are diminished at the bilateral bases, no use of accessory muscles, no crackles or wheezes. Skin: No jaundice. No rashes. Abdomen: Normal bowel sounds, abdomen soft and nontender. Genito Urinary: Genital exam not performed since complaints not related. Rectal: Rectal exam not performed since no symptoms indicated blood loss. Extremeties: No cyanosis or clubbing. Musculoskeletal: 5/5 strength, normal range of motion, no swollen or erythematous joints. Neurological: Moves all 4 extremities. No myoclonus. Data : 05/13/22 00:38 05/13/22 00:38 Micro: Microbiology 05/12/22 20:06 MRSA Culture - Final Nose 05/12/22 12:22 Gram Stain - Final Cerebrospinal Fluid CSF Culture - Preliminary 05/12/22 20:02 Bacterial Antigens - Final Urine Kidney 05/11/22 00:18 Blood Culture - Preliminary Blood 05/11/22 00:20 Blood Culture - Preliminary Blood NEGATIVE TO DATE 05/12/22 20:02 Legionella Urinary Antigen - Final Urine,Clean Catch A&P Assessment and plan (1) COVID: Status: Acute (2) Headache: Status: Acute (3) Meningitis: Ruled out. Negative CSF studies. Follow CSF cultures. Status: Suspected (4) Transaminitis: Status: Acute (5) Hypertension: Status: Acute Plan Headache: Meningitis less likely now given CSF results. Cannot rule out aseptic meningitis given COVID-19 positive. Bacterial meningitis ruled out currently. CSF studies appreciated. Follow-up culture results. Tylenol for pain every 6 hourly as needed, morphine 1 mg every 8 hours as needed. Stop antibiotics. And monitor patient for next 24 hours. Follow-up blood cultures, CSF cultures. COVID-19: On room air currently. Headache could be secondary to COVID-19 versus possible aseptic meningitis. Dexamethasone 6 mg IV daily. Remdesivir to finish a 3 to 5-day course. Continue with Advair, Spiriva. Incentive spirometry. Keep saturation over 88%. Monitor inflammatory markers including CRP every 48 hours. Transaminitis: Could be secondary to COVID-19. Resolved. Continue to monitor daily. Medical reconciliation done. Analgesia: Tylenol every 6 hours, morphine 1 every 4 hours as needed Glycemic control: Not needed A1c 5. Nutrition: Regular CODE STATUS: Full code PUD prophylaxis: Protonix DVT prophylaxis: Lovenox post lumbar puncture Discharge planning: Within next 48 to 72 hours depending on blood culture results once completed course of remdesivir on and off antibiotics depending on CSF studies for meningitis. [facility]. 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
[2022-05-13] MEDS: enoxaparin 40 mg/0.4 mL Syringe SUBCUT (16:41)
[2022-05-13] MEDS: remdesivir 100 MG in sodium chloride 0.9% (100 ml) 80 ML IV (18:29)
[2022-05-13] MEDS: morphine 4 mg/mL SDV 1 mL 1 MG IVP (21:19)
[2022-05-14] VITALS: BP 144/77; PULSE 73; RESP 18; O2SAT 95
[2022-05-14 04:00] VITALS: BP 151/95; PULSE 58; RESP 18; TEMP 36.6; O2SAT 96
[2022-05-14 05:23] LABS: Basophils % 0.1 %; Hematocrit 48.1 % (42.0-52.0); Hemoglobin 16.5 g/dL (11.7-16.6); Lymphocytes # 1.6 10^3/uL (0.8-4.8); Lymphocytes % 11.9 %; Mean Corpuscular HGB Conc 34.3 g/dL (30.0-36.0); Mean Corpuscular Hemoglobin 29.4 pg (28.0-34.0); Mean Corpuscular Volume 85.7 fl (80-94); Mean Platelet Volume 10.8 fL (7.4-10.4); Monocytes % 7.1 %; Neutrophils # 11.11 10^3/uL (1.8-7.7); Neutrophils % 80.3 %; Nucleated Red Blood Cells % 0 %; Platelet Count 231 10^3/cmm (130-400); Red Blood Count 5.61 10^6/uL (4.1-5.3); Red Cell Distribution Width 12.9 % (12.1-15.1); White Blood Count 13.8 10^3/uL (4.0-10.0)
[2022-05-14 05:44] LABS: Alanine Aminotransferase 78 U/L (0-41); Albumin Level 3.7 g/dL (3.5-5.2); Alkaline Phosphatase 65 IU/L (40-130); Anion Gap 14.6 (5-19); Aspartate Amino Transferase 38 U/L (0-40); Blood Urea Nitrogen 14 mg/dL (6-20); Calcium 8.7 mg/dL (8.5-10.5); Carbon Dioxide 26 mmol/L (22-29); Chloride 103 mmol/L (98-107); Globulin 2.9 g/dL (1.3-4.6); Glomerular Filtration Rate 120.4 mL/min (90-130); Glucose 104 mg/dL (65-115); Osmolality Calculated 289 mOsm/kg (285-295); Potassium 4.6 mmol/L (3.5-5.1); Sodium 139 mmol/L (136-145); Total Bilirubin 0.7 mg/dL (0.15-1.2); Total Protein 6.6 g/dL (6.6-8.7)
[2022-05-14 07:32] VITALS: BP 131/86; PULSE 73; RESP 16; TEMP 36.6; O2SAT 95
[2022-05-14 08:00] VITALS: PULSE 77; RESP 16; O2SAT 97
[2022-05-14] MEDS: benzonatate 100 mg Capsule PO (08:42)
[2022-05-14] MEDS: dexamethasone 10 mg/mL INJ 6 MG IVP (08:42)
[2022-05-14] MEDS: metoprolol succinate ER (24 HR) 25 mg Tablet PO (08:42)
[2022-05-14] MEDS: ferrous gluconate 324 mg Tablet PO (08:42)
[2022-05-14] MEDS: zinc gluconate 50 mg Tablet PO (08:42)
[2022-05-14] MEDS: morphine 4 mg/mL SDV 1 mL 1 MG IVP (08:54)
[2022-05-14 11:11] VITALS: BP 141/86; PULSE 74; RESP 18; TEMP 36.6; O2SAT 97
[2022-05-14] MEDS: remdesivir 100 MG in sodium chloride 0.9% (100 ml) 80 ML IV (12:16)
--- NOTE | 2022-05-14 12:22 | P.DS_ITS ---
Discharge Providers Date of Admission: 05/12/22 10:37 Date of Discharge: May 14, 2022 Attending Provider at Admission: Kedar Alonso MD Attending Provider at Discharge: Radu Mann MD Diagnoses at Discharge Discharge Diagnosis (1) COVID: Status: Acute (2) Headache: Status: Acute (3) Meningitis: Status: Suspected (4) Transaminitis: Status: Acute (5) Hypertension: Status: Acute Reason for Visit Reason for Visit: SOB, n/v Brief History: History as per HPI: Kedar Coleman is a 47 year old male with a past medical history significant for hypertension who presents with severe headache x2 days.? Patient reports he was in his usual state of health until yesterday when he developed a severe headache.? He describes the headache as diffuse starting behind the eyes and extending down to the neck.? He endorses associated symptoms of nausea, lightheadedness recurrent emesis, fevers, generalized malaise, and nonproductive cough.? He endorses nuchal rigidity.? He reports he has not been able to hold down anything today. Patient denies any sick contacts.? He denies any recent travels. In the ED, he was initially hypotensive which resolved without initial i ntervention, became hypertensive.? He was found to be tachycardic with acute hypoxia requiring 2 L nasal cannula.? Head and CT head neck angio were negative for acute findings.? He was found to have COVID-19 infection Hospital Course Hospital Course Patient to the hospital further evaluation and management of headache. On admission due to the clinical picture there is concern for meningitis or patient underwent lumbar puncture under fluoroscopy. CSF studies ruled out bacterial or viral meningitis. Blood cultures since admission 1 out of 4 bottles positive for coag negative staph which is most likely contaminant. Patient has been making medically stable and afebrile during hospitalization. CSF cultures have remained negative. On multiple work-up patient was found to be COVID-19 positive. He remained on room air during hospitalization. He was treated with IV dexamethasone and 4 doses of remdesivir. Has been discharged in hemodynamically stable condition with following advices. Advised to take inhalation treatment with Advair daily for next 2 weeks. Advised to take aspirin 81 mg daily for next 2 weeks. Advised to continue working with incentive spirometry and flutter valve while at home. Advised to continue taking dexamethasone 6 mg for next 7 days. Advised to follow-up with his primary care provider within the next 4 to 7 days. Can take his COVID-19 vaccination in 3 months. Advised to continue following social distancing and isolation protocol for next 10 days. Advised to come back to the ER if fever of more than 101 Fahrenheit, more difficulty breathing than usual or requiring higher oxygen supplementation. E Physical Exam Narrative: General: No acute distress, AO x3, Head: Normocephalic. Atraumatic. EOM intact. No nuchal rigidity is present. Neck: No JVD. Cardiovascular: RRR. Tachycardic. No gallops. No murmurs. No peripheral edema. Lungs: Breath sounds are diminished at the bilateral bases, no use of accessory muscles, no crackles or wheezes. Skin: No jaundice. No rashes. Abdomen: Normal bowel sounds, abdomen soft and nontender. Genito Urinary: Genital exam not performed since complaints not related. Rectal: Rectal exam not performed since no symptoms indicated blood loss. Extremeties: No cyanosis or clubbing. Musculoskeletal: 5/5 strength, normal range of motion, no swollen or erythematous joints. Neurological: Moves all 4 extremities. No myoclonus. Discharge Data Studies Completed and Pending Completed Studies During Hospitalization Category Date Time Status CT head wo con* [id number] Urgent Cat Scan 05/11/22 17:17 Completed CTA head neck [CT angio headneck* [id number]] Urgent Cat Scan 05/11/22 17:17 Completed FL guided lumbarpunc dx* [id number] Urgent Exams 05/12/22 08:00 Completed XR chest 1V portable [id number] Urgent Exams 05/11/22 17:17 Completed Pending at discharge Category Date Time Status Adenosine CSF [Adenosine Deaminase CSF] Routine Lab 05/12/22 12:22 Received Bacterial Antigen Routine Lab 05/12/22 12:22 Received Blood Culture Stat Lab 05/11/22 00:20 Results C Reactive Protein Q48H Lab 05/15/22 04:00 Ordered CSF Culture & Gram Stain Routine Lab 05/12/22 12:22 Results Radiology Impressions Chest X-Ray 05/11/22 17:17 IMPRESSION: No acute finding. Head CT 05/11/22 17:17 IMPRESSION: 1. No acute intracranial abnormality. Head/Neck CTA 05/11/22 17:17 IMPRESSION: No large vessel stenosis or occlusion. IMPRESSION: No stenosis or occlusion. REFERENCES: NASCET CRITERIA. The degree of internal carotid artery stenosis is based on NASCET criteria. Normal is no stenosis. Mild is less than 50% stenosis. Moderate is 50-69% stenosis. Severe is 70% to 99% stenosis. Total occlusionis no detectable patent lumen. Lumbar Puncture Fluoroscopy 05/12/22 08:00 IMPRESSION: Fluoroscopically guided lumbar puncture. No immediate complications Microbiology 05/11/22 00:18 Blood Blood Culture - Preliminary Staphylococcus sp coag neg 05/12/22 12:22 Cerebrospinal Fluid Gram Stain - Final 05/12/22 12:22 Cerebrospinal Fluid CSF Culture - Preliminary 05/12/22 20:06 Nose MRSA Culture - Final 05/12/22 20:02 Urine Kidney Bacterial Antigens - Final 05/11/22 00:20 Blood Blood Culture - Preliminary NEGATIVE TO DATE 05/12/22 20:02 Urine,Clean Catch Legionella Urinary Antigen - Final Laboratory Results WBC 13.8 10^3/uL (4.0-10.0) H 05/14/22 05:10 Corrected WBC Cancelled 05/14/22 03:30 RBC 5.61 10^6/uL (4.1-5.3) H 05/14/22 05:10 Hgb 16.5 g/dL (11.7-16.6) 05/14/22 05:10 Hct 48.1 % (42.0-52.0) 05/14/22 05:10 MCV 85.7 fl (80-94) 05/14/22 05:10 MCH 29.4 pg (28.0-34.0) 05/14/22 05:10 MCHC 34.3 g/dL (30.0-36.0) 05/14/22 05:10 RDW 12.9 % (12.1-15.1) 05/14/22 05:10 Plt Count 231 10^3/cmm (130-400) 05/14/22 05:10 MPV 10.8 fL (7.4-10.4) H 05/14/22 05:10 Gran % Cancelled 05/14/22 03:30 Neut % (Auto) 80.3 % 05/14/22 05:10 Lymph % (Auto) 11.9 % 05/14/22 05:10 [place] % (Auto) 7.1 % 05/14/22 05:10 Eos % (Auto) 0.0 % 05/14/22 05:10 Baso % (Auto) 0.1 % 05/14/22 05:10 Neut # (Auto) 11.11 10^3/uL (1.8-7.7) H 05/14/22 05:10 Lymph # (Auto) 1.6 10^3/uL (0.8-4.8) 05/14/22 05:10 [place] # (Auto) 1.0 10^3/uL (0.2-0.9) H 05/14/22 05:10 Eos # (Auto) 0.0 10^3/uL (0.0-0.8) 05/14/22 05:10 Baso # (Auto) 0.0 10^3/uL (0.0-0.1) 05/14/22 05:10 Absolute Gran (auto) Cancelled 05/14/22 03:30 Nucleated RBC % (auto) 0 % 05/14/22 05:10 Nucleated RBCs # 0.0 /100WBC 05/14/22 05:10 D-Dimer 0.29 ug/mIFEU (0-0.59) 05/11/22 19:35 Sodium 139 mmol/L (136-145) 05/14/22 05:10 Potassium 4.6 mmol/L (3.5-5.1) 05/14/22 05:10 Chloride 103 mmol/L (98-107) 05/14/22 05:10 Carbon Dioxide 26 mmol/L (22-29) 05/14/22 05:10 Anion Gap 14.6 (5-19) 05/14/22 05:10 BUN 14 mg/dL (6-20) 05/14/22 05:10 Creatinine 0.7 mg/dL (0.7-1.2) 05/14/22 05:10 GFR Calculation 120.4 mL/min (90-130) 05/14/22 05:10 Glucose 104 mg/dL (65-115) 05/14/22 05:10 POC Glucose 105 mg/dL (70-110) 05/11/22 17:18 Estimat Average Glucose 97 05/13/22 00:38 Hemoglobin A1c 5.0 % (4.0-6.0) 05/13/22 00:38 Calculated Osmolality 289 mOsm/kg (285-295) 05/14/22 05:10 Calcium 8.7 mg/dL (8.5-10.5) 05/14/22 05:10 Phosphorus 2.3 mg/dL (2.5-4.5) L 05/12/22 00:18 Magnesium 2.1 mg/dL (1.7-2.3) 05/12/22 00:18 Iron 37 ug/dL (59-158) L 05/12/22 00:18 TIBC 239 mcg/dl 05/12/22 00:18 % Saturation 15.4 % (20-50) L 05/12/22 00:18 Unsat Iron Binding 202 ug/dL (112-347) 05/12/22 00:18 Total Bilirubin 0.7 mg/dL (0.15-1.2) 05/14/22 05:10 AST 38 U/L (0-40) 05/14/22 05:10 ALT 78 U/L (0-41) H 05/14/22 05:10 Alkaline Phosphatase 65 IU/L (40-130) 05/14/22 05:10 Creatine Kinase 66 U/L (39-308) 05/11/22 17:20 Troponin T Baseline 6 ng/L (0-15) 05/11/22 17:20 Troponin T 120 Minute 7.60 ng/L (0-15) 05/11/22 19:35 Delta Troponin T 1.60 ABS# (0-10) 05/11/22 19:35 C-Reactive Protein 10.7 mg/L (0.0-4.9) H 05/13/22 00:38 Total Protein 6.6 g/dL (6.6-8.7) 05/14/22 05:10 Albumin 3.7 g/dL (3.5-5.2) 05/14/22 05:10 Globulin 2.9 g/dL (1.3-4.6) 05/14/22 05:10 Triglycerides 97 mg/dL (0-150) 05/13/22 00:38 Cholesterol 117 mg/dL (0-200) 05/13/22 00:38 LDL Cholesterol, Calc 64 mg/dL (50-129) 05/13/22 00:38 Total VLDL Cholesterol 19 mg/dL (0-30) 05/13/22 00:38 HDL Cholesterol 34 mg/dL (60-100) L 05/13/22 00:38 Cholesterol/HDL Ratio 3.44 mg/dL (1.0-5.00) 05/13/22 00:38 Lipase 16 U/L (13-60) 05/11/22 17:20 Procalcitonin 0.22 ng/mL (0-0.5) 05/11/22 17:20 TSH 0.84 uIU/mL (0.27-4.20) 05/11/22 19:35 Free T4 1.18 ng/dL (0.82-1.77) 05/11/22 19:35 Urine Color Colorless (Yellow) 05/12/22 20:02 Urine Appearance Clear (CLEAR) 05/12/22 20:02 Urine pH 5 (5-7) 05/12/22 20:02 Ur Specific [place] 1.010 (1.005-1.030) 05/12/22 20:02 Urine Protein Neg (Negative) 05/12/22 20:02 Urine Glucose (UA) 4+ (Normal) H 05/12/22 20:02 Urine Ketones Negative (Negative) 05/12/22 20:02 Urine Blood Neg (Negative) 05/12/22 20:02 Urine Nitrate Negative (Negative) 05/12/22 20:02 Urine Bilirubin Neg (Negative) 05/12/22 20:02 Urine Urobilinogen Norm mg/dL (Negative) 05/12/22 20:02 Ur Leukocyte Esterase Negative (Negative) 05/12/22 20:02 CSF Appearance Clear (CLEAR) 05/12/22 12:22 CSF Color Colorless (COLORLESS) 05/12/22 12:22 CSF Specific [place] 1.020 05/12/22 12:22 CSF WBC 2 /uL (0-5) 05/12/22: CSF RBC 0 10^3/uL (0-0) 05/12/22 12:22 CSF Mononuclear # Auto 0.001 10^3/uL (50-90) L 05/12/22 12:22 CSF Mononuclear WBCs % 50 % (50-90) 06/15/22 12:22 CSF Polynuclear WBCs # 0.001 10^3/uL (0-10) 05/12/22 12:22 CSF Polynuclear WBCs % 50 % (0-10) H 05/12/22 12:22 CSF Glucose 82 mg/dL (40-70) H 05/12/22 12:22 CSF Total Protein 23 mg/dL (15-45) 05/12/22 12:22 Nasal Influ A H1 2009 PCR Not detected (NOT DETECT) 05/11/22 18:26 Vancomycin Trough 19.0 ug/mL (10-15) H 05/13/22 00:38 Adenovirus (PCR) Not detected (NOT DETECT) 05/11/22 18:26 C. pneumoniae DNA (PCR) Not detected (NOT DETECT) 05/11/22 18: Coronavirus 229E (PCR) Not detected (NOT DETECT) 05/11/22 18:26 Human Metapneumovir PCR Not detected (NOT DETECT) 05/11/22 18:26 Influenza A (H1) PCR Not detected (NOT DETECT) 05/11/22 18:26 Influenza A (H3) PCR Not detected (NOT DETECT) 05/11/22 18:26 Influenza Type A (PCR) Not detected (NOT DETECT) 05/11/22 18:26 Influenza Type B (PCR) Not detected (NOT DETECT) 05/11/22 18:26 M. pneumoniae (PCR) Not detected (NOT DETECT) 05/11/22 18:26 Parainfluenza 1 (PCR) Not detected (NOT DETECT) 05/11/22 18:26 Parainfluenza 2 (PCR) Not detected (NOT DETECT) 05/11/22 18:26 Parainfluenza 3 (PCR) Not detected (NOT DETECT) 05/11/22 18:26 Parainfluenza 4 (PCR) Not detected (NOT DETECT) 05/11/22 18:26 RSV Type A (PCR) Not detected (NOT DETECT) 05/11/22 18:26 RSV Type B (PCR) Not detected (NOT DETECT) 05/11/22 18:26 Entero/Rhino (PCR) Not detected (NOT DETECT) 05/11/22 18:26 SARS-CoV-2 (PCR) Detected (NOT DETECT) A 05/11/22 18:26 Vitals Last Vital Signs Temp 97.9 F 05/14/22 11:11 Pulse 74 05/14/22 11:11 Resp 18 05/14/22 11:11 BP 141/86 05/14/22 11:11 Pulse Ox 97 05/14/22 11:11 Discharge Plan Discharge Patient Disposition: Home Condition: Stable Prescriptions: New benzonatate 100 mg Capsule 100 mg PO TID PRN (Reason: cough) Qty: 10 0RF ferrous gluconate 324 mg (37.5 mg iron) Tablet 324 mg PO BIDWM Qty: 60 0RF Advair HFA 115-21 mcg/actuation HFA aerosol inhaler 2 inh inhalation BID 14 Days Qty: 12 0RF zinc gluconate 50 mg Tablet 50 mg PO DAILY Qty: 14 0RF dexamethasone 6 mg tablet 6 mg PO Q24H Qty: 7 0RF Rx Instructions: for up to 10 days Continued metoprolol succinate 25 mg tablet extended release 24 hr 25 mg PO DAILY 0RF Discharge Orders: Discharge Order (Routine); Ordered 05/14/22 Ordered By: Radu Mann Referrals: Gunner Dennis MD [Physician] - 4-7 days Discharge Diet: Usual diet Discharge Activity: Resume usual activity and Increase activity as tolerated Patient Instructions: COPD, COVID-19 (Coronavirus Disease 2019) (GEN), COPD Stoplight, Opioid Safety Activity Restrictions/Additional Instructions: Advised to take inhalation treatment with Advair daily. Advised to take aspirin 81 mg daily for next 2 weeks. Advised to continue working with incentive spirometry and flutter valve while at home. Advised to continue taking dexamethasone 6 mg for next 7 days. Advised to follow-up with his primary care provider within the next 4 to 7 days. Can take his COVID-19 vaccination in 3 months. Advised to continue following social distancing and isolation protocol for next 10 days. Advised to come back to the ER if fever of more than 101 Fahrenheit, more difficulty breathing than usual or requiring higher oxygen supplementation. Discharge Attestations Time Spent in Discharge Care*: greater than 30 min Specific Discharge Activities: educating patient, educating and/or supporting family/caregiver, discussing with case making machine operator/social workers/dc planners, documenting/other paperwork and evaluating patient/reviewing data Status at Discharge: Cognitive status at discharge: cognitively intact , Behavioral status at discharge: cooperative , Functional status at discharge: independent ambulation , Overall status at discharge: patient is back to baseline Quality Metrics Clinical Quality Measures [ No reported AMI, CVA or VTE this stay] Coding Level of Care Code Acute Chg FW DC note Diagnoses COVID U07.1 Headache R51.9 Meningitis G03.9 Transaminitis R74.01 Hypertension I10
[2022-05-16 20:02] LABS: Adenosine Deaminase CSF 0.3 U/L (<7.0)
== END 2022-05-14 13:30 | disposition home or self-care (01) | DRG 179 ==
LOC: ER 22:07 → MEDSURG 22:34
PROVIDERS: Admitting Provider Internal Medicine; Emergency Provider Emergency Medicine; Visit Provider Student in an Organized Health Care Education/Training Program
DX: U07.1 COVID-19 (principal); I10 Essential (primary) hypertension; R00.0 Tachycardia, unspecified; E86.0 Dehydration; I95.9 Hypotension, unspecified; R09.02 Hypoxemia; Z03.89 Encounter for observation for other suspected diseases and conditions ruled out
CPT/HCPCS: 36415; 36416; 62328; 70450; 70496; 70498; 71045; 80053; 80061; 80202; 80503; 81003; 82550; 82945; 82962; 83036; 83540; 83550; 83690; 83735; 84100; 84145; 84157; 84311; 84315; 84439; 84443; 84484; 85025; 85378; 86140; 86403; 87040; 87070; 87075; 87205; 87449; 87486; 87581; 87633; 87641; 89050; 93005; 94640; 94664; 96365; 96367; 96372; 96375; 96376; 99285; C9113; G0378; J0696; J1100; J1200; J1650; J2270; J2405; J2765; J3370; J3475; J7030; J7050; J7626; Q9967

== ENCOUNTER 2023-01-25 17:42 | Emergency (ER) | payer OTHER, BC, SELFPAY ==
[2023-01-25 17:51] VITALS: BP 155/121; PULSE 112; RESP 22; TEMP 36.8; O2SAT 95; BMI 28.2
[2023-01-25 18:59] LABS: Basophils # 0.1 10^3/uL (0.0-0.1); Basophils % 0.5 %; Eosinophils # 0.4 10^3/uL (0.0-0.8); Eosinophils % 3.7 %; Hematocrit 52.5 % (42.0-52.0); Hemoglobin 17.4 g/dL (11.7-16.6); Lymphocytes # 1.9 10^3/uL (0.8-4.8); Lymphocytes % 20.4 %; Mean Corpuscular HGB Conc 33.1 g/dL (30.0-36.0); Mean Corpuscular Hemoglobin 29.8 pg (28.0-34.0); Mean Corpuscular Volume 89.9 fl (80-94); Mean Platelet Volume 10.9 fL (7.4-10.4); Monocytes % 10.8 %; Neutrophils # 6.05 10^3/uL (1.8-7.7); Neutrophils % 64.1 %; Nucleated Red Blood Cells % 0 %; Platelet Count 298 10^3/cmm (130-400); Red Blood Count 5.84 10^6/uL (4.1-5.3); Red Cell Distribution Width 13.1 % (12.1-15.1); White Blood Count 9.5 10^3/uL (4.0-10.0)
[2023-01-25 19:18] LABS: Alanine Aminotransferase 92 U/L (0-41); Albumin Level 4.3 g/dL (3.5-5.2); Alkaline Phosphatase 89 U/L (40-130); Blood Urea Nitrogen 11 mg/dL (6-20); Calcium 9.5 mg/dL (8.5-10.5); Carbon Dioxide 20 mmol/L (22-29); Chloride 101 mmol/L (98-107); Globulin 3.2 g/dL (1.3-4.6); Glomerular Filtration Rate 176.7 mL/min (90-130); Glucose 87 mg/dL (65-115); Lipase 17 U/L (13-60); Osmolality Calculated 275 mOsm/kg (285-295); Sodium 133 mmol/L (136-145); Total Bilirubin 1.9 mg/dL (0.15-1.2); Total Protein 7.5 g/dL (6.6-8.7)
[2023-01-25 19:19] LABS: Anion Gap 16.3 (5-19); Aspartate Amino Transferase 53 U/L (0-40); Potassium 4.3 mmol/L (3.5-5.1)
--- NOTE | 2023-01-25 21:53 | CTR_ITS ---
PROCEDURE INFORMATION: Exam: CT Abdomen And Pelvis With Contrast Exam date and time: 01/25/2023 10:14 PM Age: 48 years old Clinical indication: Nausea and vomiting; Abdominal pain; Localized; Prior surgery; Surgery type: Appy; Patient HX: C/O lower abd pain with n/v. TECHNIQUE: Imaging protocol: Computed tomography of the abdomen and pelvis with contrast. Radiation optimization: All CT scans at this facility use at least one of these dose optimization techniques: automated exposure control; mA and/or kV adjustment per patient size (includes targeted exams where dose is matched to clinical indication); or iterative reconstruction. Contrast material: OMNI 350; Contrast volume: 100 ml; Contrast route: INTRAVENOUS (IV); REPORTING DATA: Count of CT and Cardiac NM exams in prior 12 months: This patient has received 2 known CTs and 0 known cardiac nuclear medicine studies in the 12 months prior to the current study. COMPARISON: CR (CHEST, ) 05/11/2022 5:26 PM RADIATION DOSE METRICS: Total DLP (mGy-cm): 955.63 FINDINGS: Diaphragm: Small hiatal hernia. Liver: Hepatic steatosis. Gallbladder and bile ducts: Normal. No calcified stones. No ductal dilation. Pancreas: Normal. No ductal dilation. Spleen: Normal. No splenomegaly. Adrenal glands: Normal. No mass. Kidneys and ureters: Several right kidney cysts, negative follow-up advised. Stomach and bowel: Mild edema adjacent to the proximal sigmoid colon in the area of several diverticula concerning for a mild diverticulitis. Appendix: No evidence of appendicitis. Intraperitoneal space: Unremarkable. No free air. No significant fluid collection. Vasculature: Unremarkable. No abdominal aortic aneurysm. Lymph nodes: Unremarkable. No enlarged lymph nodes. Urinary bladder: Unremarkable as visualized. Reproductive: Unremarkable as visualized. Bones/joints: Unremarkable. No acute fracture. Soft tissues: Unremarkable. CT/CT abdomen pelvis w con* [id number] IMPRESSION: 1. Mild edema adjacent to the proximal sigmoid colon in the area of several diverticula concerning for a mild diverticulitis. 2. Hepatic steatosis. 3. Small hiatal hernia. 4. Several right kidney cysts, negative follow-up advised. COMMENTS: Consistent with the [employer]'s Incidental Findings Committee white paper (J Am Nia Radiol 2018): Any incidental renal lesion less than 1 cm or classified as too small to characterize, or any incidental cystic renal lesion characterized as simple-appearing, is likely benign. No follow-up imaging is recommended for these lesions per consensus recommendations based on imaging criteria.
[2023-01-25 22:00] VITALS: BP 144/97; PULSE 93; RESP 16; O2SAT 97
--- NOTE | 2023-01-25 22:00 | ED_ITS ---
HPI - Abdominal Pain General: Chief Complaint: Abdominal Pain Stated Complaint: abd pain Time Seen by Provider: 01/25/23 21:44 Source: patient Mode of arrival: ambulatory Limitations: no limitations History of Present Illness: 48-year-old male who states been having lower abdominal pain since yesterday states he had some vomiting yesterday and has had worsening abdominal pain he states that today he notes in his right lower quadrant and left lower quadrant. States pain is sharp in nature rates it a 7 out of 10 worse with movement improved with rest denies any fevers denies any diarrhea. Associated Symptoms: Denies chills, dysuria and fever(s) Review of Systems Const: Denies: fever(s), chills, body aches or change in appetite Eyes: Denies: blurry vision or eye discomfort ENMT: Denies: throat pain or dental pain Card: Denies: chest pain Resp: Denies: dyspnea GI: Reports: abdominal pain : Denies: dysuria Musc: Denies: neck pain or back pain Skin/Breast: Denies: rash Neuro: Denies: headache(s) Psych: Denies: depression [place]/Lymph: Denies: easy bruising All/Imm: Denies: urticaria PFSH ED PFSH: Medical History Hypertension Surgical History History of appendectomy Family History (Updated 05/11/22 @ 22:06 by Kedar Alonso MD) Father Hypertension Social History Smoking and tobacco status: never smoked Alcohol intake: never Physical Exam Const: COMMON NORMALS: no acute distress, patient oriented x3 and healthy appearing HENMT: COMMON NORMALS: normocephalic and atraumatic HEAD & SCALP: normocephalic and atraumatic Eye: COMMON NORMALS: Equal, round and reactive pupils present and EOMs intact bilaterally PUPIL: Yes Equal, round and reactive pupils present Neck/C-Spine: COMMON NORMALS: full ROM and supple Chest: COMMONS NORMALS: normal inspection of the chest and normal palpation of entire chest wall Resp: COMMON NORMALS: normal respiratory effort, No retractions, No use of accessory muscles and clear to auscultation bilaterally AUSCULTATION: clear to auscultation bilaterally Cardio: COMMON NORMALS: regular rate, regular rhythm and No murmurs present (Cardio) RATE: regular rate RHYTHM: regular rhythm GI: COMMON NORMALS: Normal to inspection, nondistended, normoactive bowel sounds present, Soft to palpation and no masses PALPATION: Yes Soft to palpation and Yes Tenderness to palpation present (GI) Details: LLQ Extremity: COMMON NORMALS: normal to inspection and full ROM Neuro: COMMON NORMALS: patient oriented x3, moves all extremities and no focal motor deficits Psych: COMMON NORMALS: mental status grossly normal, Normal thought process present and cooperative THOUGHT PROCESS: Normal thought process present Skin: COMMON NORMALS: no rashes or lesions noted and no wounds GENERAL SKIN EXAM: no rashes or lesions noted Course Vital Signs: Vital signs: Vital Signs Temperature 98.2 F 01/25/23 17:51 Pulse Rate 112 H 01/25/23 17:51 Respiratory Rate 16 01/25/23 22:13 Blood Pressure 155/121 01/25/23 17:51 Pulse Oximetry 95 01/25/23 17:51 Oxygen Delivery Me thod 01/25/23 17:51 MDM - Abdominal Pain Medical Decision Making Patient presents with left lower quadrant abdominal pain his CT does show diverticulitis is consistent with his exam he is well-appearing here his white count is normal he is afebrile we will start him on Cipro Flagyl along with pain meds at home he is to follow-up with PCP and return if worsening he understands agrees to plan. Lab Data 01/25/23 18:51 01/25/23 18:51 Labs/Radiology: Radiology Impressions Abdomen/Pelvis CT 01/25/23 21:53 IMPRESSION: 1. Mild edema adjacent to the proximal sigmoid colon in the area of several diverticula concerning for a mild diverticulitis. 2. Hepatic steatosis. 3. Small hiatal hernia. 4. Several right kidney cysts, negative follow-up advised. COMMENTS: Consistent with the [employer]'s Incidental Findings Committee white paper (J Am Nia Radiol 2018): Any incidental renal lesion less than 1 cm or classified as too small to characterize, or any incidental cystic renal lesion characterized as simple-appearing, is likely benign. No follow-up imaging is recommended for these lesions per consensus recommendations based on imaging criteria. Laboratory Results WBC 9.5 10^3/uL (4.0-10.0) 01/25/23 18:51 RBC 5.84 10^6/uL (4.1-5.3) H 01/25/23 18:51 Hgb 17.4 g/dL (11.7-16.6) H 01/25/23 18:51 Hct 52.5 % (42.0-52.0) H 01/25/23 18:51 MCV 89.9 fl (80-94) 01/25/23 18:51 MCH 29.8 pg (28.0-34.0) 01/25/23 18:51 MCHC 33.1 g/dL (30.0-36.0) 01/25/23 18:51 RDW 13.1 % (12.1-15.1) 01/25/23 18:51 Plt Count 298 10^3/cmm (130-400) 01/25/23 18:51 MPV 10.9 fL (7.4-10.4) H 01/25/23 18:51 Neut % (Auto) 64.1 % 01/25/23 18:51 Lymph % (Auto) 20.4 % 01/25/23 18:51 [place] % (Auto) 10.8 % 01/25/23 18:51 Eos % (Auto) 3.7 % 01/25/23 18:51 Baso % (Auto) 0.5 % 01/25/23 18:51 Neut # (Auto) 6.05 10^3/uL (1.8-7.7) 01/25/23 18:51 Lymph # (Auto) 1.9 10^3/uL (0.8-4.8) 01/25/23 18:51 [place] # (Auto) 1.0 10^3/uL (0.2-0.9) H 01/25/23 18:51 Eos # (Auto) 0.4 10^3/uL (0.0-0.8) 01/25/23 18:51 Baso # (Auto) 0.1 10^3/uL (0.0-0.1) 01/25/23 18:51 Nucleated RBC % (auto) 0 % 01/25/23 18:51 Nucleated RBCs # 0.0 /100WBC 01/25/23 18:51 Sodium 133 mmol/L (136-145) L 01/25/23 18:51 Potassium 4.3 mmol/L (3.5-5.1) 01/25/23 18:51 Chloride 101 mmol/L (98-107) 01/25/23 18:51 Carbon Dioxide 20 mmol/L (22-29) L 01/25/23 18:51 Anion Gap 16.3 (5-19) 01/25/23 18:51 BUN 11 mg/dL (6-20) 01/25/23 18:51 Creatinine 0.5 mg/dL (0.7-1.2) L 01/25/23 18:51 GFR Calculation 176.7 mL/min (90-130) H 01/25/23 18:51 Glucose 87 mg/dL (65-115) 01/25/23 18:51 Calculated Osmolality 275 mOsm/kg (285-295) L 01/25/23 18:51 Calcium 9.5 mg/dL (8.5-10.5) 01/25/23 18:51 Total Bilirubin 1.9 mg/dL (0.15-1.2) H 01/25/23 18:51 AST 53 U/L (0-40) H 01/25/23 18:51 ALT 92 U/L (0-41) H 01/25/23 18:51 Alkaline Phosphatase 89 U/L (40-130) 01/25/23 18:51 Total Protein 7.5 g/dL (6.6-8.7) 01/25/23 18:51 Albumin 4.3 g/dL (3.5-5.2) 01/25/23 18:51 Globulin 3.2 g/dL (1.3-4.6) 01/25/23 18:51 Lipase 17 U/L (13-60) 01/25/23 18:51 Discharge Plan Discharge Patient Disposition: Home Clinical Impression: Diverticulitis Condition: Stable Prescriptions: New hydrocodone-acetaminophen 5-325 mg tablet 1 tab PO Q6H PRN (Reason: pain) Qty: 14 0RF metronidazole 500 mg tablet 500 mg PO Q8H 7 Days Qty: 21 0RF Cipro 500 mg tablet 500 mg PO BID Qty: 14 0RF ondansetron 4 mg tablet,disintegrating 4 mg PO Q6H PRN (Reason: nausea and vomiting) Qty: 14 0RF No Action metoprolol succinate 25 mg tablet extended release 24 hr 25 mg PO DAILY benzonatate 100 mg Capsule 100 mg PO TID PRN (Reason: cough) Qty: 10 0RF ferrous gluconate 324 mg (37.5 mg iron) Tablet 324 mg PO BIDWM Qty: 60 0RF zinc gluconate 50 mg Tablet 50 mg PO DAILY Qty: 14 0RF dexamethasone 6 mg tablet 6 mg PO Q24H Qty: 7 0RF Rx Instructions: for up to 10 days Discharge Orders: Discharge ED (Routine); Ordered 01/25/23 Ordered By: Jina Navarrete Referrals: Xander Sahu DO [Physician] - 1-3 days Discharge Diet: Advance as tolerated Discharge Activity: Resume usual activity Patient Instructions: Diverticulitis (ED), Opioid Safety Stand Alone Forms: Work/School Release Coding Level of Care Code ED Panel Instrument Repairer for Tony Jean
[2023-01-25] MEDS: sodium chloride 0.9% 1,000 ML 999 ML IV (22:03)
[2023-01-25 22:13] VITALS: RESP 16
[2023-01-25] MEDS: ondansetron 2 mg/ML SDV 2 mL 4 MG IVP (22:13)
[2023-01-25] MEDS: morphine 4 mg/mL SDV 1 mL IVP (22:13)
[2023-01-25] MEDS: iohexol 350 mg/mL 500 mL Btl (per mL) IV (22:16)
[2023-01-25 22:25] VITALS: BP 138/102; PULSE 87; O2SAT 96
[2023-01-25] MEDS: ciprofloxacin 500 mg Tablet PO (22:53)
[2023-01-25] MEDS: metroNIDAZOLE 500 MG Tablet PO (22:53)
[2023-01-25 22:55] VITALS: BP 141/101; PULSE 85; O2SAT 96
== END 2023-01-25 23:12 | disposition home or self-care (01) ==
PROVIDERS: Emergency Provider Emergency Medicine
DX: K57.92 Diverticulitis of intestine, part unspecified, without perforation or abscess without bleeding (principal)
CPT/HCPCS: 36415; 74177; 80053; 83690; 85025; 96361; 96374; 96375; 99285; J2270; J2405; J7030; Q9967

== ENCOUNTER 2023-02-25 15:43 | Emergency (ER) | payer OTHER, BC, SELFPAY ==
[2023-02-25 15:59] VITALS: BP 202/142; PULSE 94; RESP 19; TEMP 36.9; O2SAT 96; BMI 28.3
[2023-02-25 18:03] LABS: Basophils # 0.1 10^3/uL (0.0-0.1); Basophils % 0.9 %; Eosinophils # 0.6 10^3/uL (0.0-0.8); Eosinophils % 6.3 %; Hematocrit 53.5 % (42.0-52.0); Hemoglobin 17.8 g/dL (11.7-16.6); Lymphocytes # 2.2 10^3/uL (0.8-4.8); Lymphocytes % 25.5 %; Mean Corpuscular HGB Conc 33.3 g/dL (30.0-36.0); Mean Corpuscular Hemoglobin 29.1 pg (28.0-34.0); Mean Corpuscular Volume 87.6 fl (80-94); Monocytes # 1.1 10^3/uL (0.2-0.9); Monocytes % 12.5 %; Neutrophils # 4.68 10^3/uL (1.8-7.7); Nucleated Red Blood Cells % 0 %; Platelet Count 271 10^3/cmm (130-400); Red Blood Count 6.11 10^6/uL (4.1-5.3); White Blood Count 8.7 10^3/uL (4.0-10.0)
--- NOTE | 2023-02-25 18:22 | W.ED.ABDPA2 ---
HPI - Abdominal Pain General: Chief Complaint: Abdominal Pain Stated Complaint: diverticulitis Time Seen by Provider: 02/25/23 18:22 History of Present Illness: Mr. Coleman is a 48-year-old gentleman with history of diverticulitis presenting to the emergency department for worsening left lower quadrant abdominal pain. He reports onset of symptoms 5 or 6 days ago with abdominal pain. He was seen by primary care 4 days ago and started on ciprofloxacin and metronidazole which she has been taking however has had continued symptoms. He does note cough and headache. He feels dehydrated. He has had numerous episodes of diarrhea. Pain is worse in the left lower quadrant. Intensity symptoms is moderate to severe. Course has worsened. No other specific changes in health, exacerbating, or alleviating factors identified. Onset (ago): day(s) Pain Consistency: constant Location: LLQ Severity: severe Quality: burning Radiation: other (Generalized) Exacerbating factors: movement Relieving factors: nothing Associated Symptoms: Reports diarrhea, nausea and poor appetite Review of Systems General: Reports: 10 or more systems reviewed and unremarkable except in HPI and below GI: Reports: nausea and diarrhea PFSH ED PFSH: Medical History Hypertension Surgical History History of appendectomy Family History Father Hypertension Social History Smoking and tobacco status: never smoked Alcohol intake: never Physical Exam Const: COMMON NORMALS: alert GENERAL APPEARANCE: cooperative and well developed HENMT: COMMON NORMALS: normocephalic and atraumatic HEAD & SCALP: normocephalic and atraumatic Eye: COMMON NORMALS: conjunctivae normal CONJUNCTIVA: Yes conjunctivae normal SCLERA: sclerae normal Neck/C-Spine: COMMON NORMALS: supple GENERAL: Yes trachea midline Resp: COMMON NORMALS: clear to auscultation bilaterally EFFORT & INSPECTION: Yes able to speak in complete sentences AUSCULTATION: clear to auscultation bilaterally Cardio: COMMON NORMALS: regular rate and regular rhythm RATE: regular rate RHYTHM: regular rhythm GI: COMMON NORMALS: Soft to palpation PALPATION: Yes Soft to palpation, Yes Tenderness to palpation present (GI), Yes Guarding due to palpation present (GI) and No Rigid due to palpation Extremity: GENERAL: Yes normal exam except as noted and No edema Neuro: COMMON NORMALS: moves all extremities SENSORIUM/ORIENTATION: Yes alert and No Orientation impaired Psych: COMMON NORMALS: mental status grossly normal and Normal thought process present THOUGHT PROCESS: Normal thought process present Course Vital Signs: Vital signs: Vital Signs Temperature 98.4 F 02/25/23 15:59 Pulse Rate 75 02/25/23 21:55 Respiratory Rate 16 02/25/23 21:55 Blood Pressure 157/111 02/25/23 21:55 Pulse Oximetry 95 02/25/23 21:55 Oxygen Delivery Me thod Room Air 02/25/23 19:30 MDM - Abdominal Pain Medical Decision Making 48-year-old gentleman presenting with abdominal concerns. Abdominal tenderness with guarding there was no evidence of acute surgical abdomen. He is uncomfortable but nontoxic in appearance. Labs with no leukocytosis, hemoconcentration compared to prior. Metabolic panel without acute derangement. Mild elevation in bilirubin and transaminases similar to prior. No UTI. CT imaging demonstrates constipation, incidental findings discussed with patient. Patient improved with analgesia, antiemetic, IV fluids and able to tolerate p.o. intake. Most likely etiology of patient symptoms is unspecified abdominal pain with constipation. The results of ED evaluation were discussed with the patient including prescriptions and/or symptomatic cares (if applicable) including appropriate and responsible use, followup plan, and return precautions. The patient verbalized understanding and felt safe for discharge. Medical Records I reviewed the patient's medical records. Lab Data I reviewed the patient's lab results. 02/25/23 17:45 02/25/23 17:45 Labs/Radiology: Radiology Impressions Abdomen/Pelvis CT 02/25/23 19:33 IMPRESSION: 1. Increased fecal content in the colon. 2. Stable mild fatty infiltration of the liver. 3. Incidental/nonacute findings are listed in the report. Laboratory Results WBC 8.7 10^3/uL (4.0-10.0) 02/25/23 17:45 RBC 6.11 10^6/uL (4.1-5.3) H 02/25/23 17:45 Hgb 17.8 g/dL (11.7-16.6) H 02/25/23 17:45 Hct 53.5 % (42.0-52.0) H 02/25/23 17:45 MCV 87.6 fl (80-94) 02/25/23 17:45 MCH 29.1 pg (28.0-34.0) 02/25/23 17:45 MCHC 33.3 g/dL (30.0-36.0) 02/25/23 17:45 RDW 13.0 % (12.1-15.1) 02/25/23 17:45 Plt Count 271 10^3/cmm (130-400) 02/25/23 17:45 MPV 11.0 fL (7.4-10.4) H 02/25/23 17:45 Neut % (Auto) 54.0 % 02/25/23 17:45 Lymph % (Auto) 25.5 % 02/25/23 17:45 [place] % (Auto) 12.5 % 02/25/23 17:45 Eos % (Auto) 6.3 % 02/25/23 17:45 Baso % (Auto) 0.9 % 02/25/23 17:45 Neut # (Auto) 4.68 10^3/uL (1.8-7.7) 02/25/23 17:45 Lymph # (Auto) 2.2 10^3/uL (0.8-4.8) 02/25/23 17:45 [place] # (Auto) 1.1 10^3/uL (0.2-0.9) H 02/25/23 17:45 Eos # (Auto) 0.6 10^3/uL (0.0-0.8) 02/25/23 17:45 Baso # (Auto) 0.1 10^3/uL (0.0-0.1) 02/25/23 17:45 Nucleated RBC % (auto) 0 % 02/25/23 17:45 Nucleated RBCs # 0.0 /100WBC 02/25/23 17:45 Sodium 140 mmol/L (136-145) 02/25/23 17:45 Potassium 4.3 mmol/L (3.5-5.1) 02/25/23 17:45 Chloride 105 mmol/L (98-107) 02/25/23 17:45 Carbon Dioxide 23 mmol/L (22-29) 02/25/23 17:45 Anion Gap 16.3 (5-19) 02/25/23 17:45 BUN 10 mg/dL (6-20) 02/25/23 17:45 Creatinine 0.5 mg/dL (0.7-1.2) L 02/25/23 17:45 GFR Calculation 176.7 mL/min (90-130) H 02/25/23 17:45 Glucose 81 mg/dL (65-115) 02/25/23 17:45 Calculated Osmolality 288 mOsm/kg (285-295) 02/25/23 17:45 Calcium 9.0 mg/dL (8.5-10.5) 02/25/23 17:45 Total Bilirubin 1.4 mg/dL (0.15-1.2) H 02/25/23 17:45 AST 75 U/L (0-40) H 02/25/23 17:45 ALT 115 U/L (0-41) H 02/25/23 17:45 Alkaline Phosphatase 71 U/L (40-130) 02/25/23 17:45 Total Protein 7.1 g/dL (6.6-8.7) 02/25/23 17:45 Albumin 4.4 g/dL (3.5-5.2) 02/25/23 17:45 Globulin 2.7 g/dL (1.3-4.6) 02/25/23 17:45 Lipase 21 U/L (13-60) 02/25/23 17:45 Urine Color Yellow (Yellow) 02/25/23 20:18 Urine Appearance Clear (CLEAR) 02/25/23 20:18 Urine pH 5 (5-7) 02/25/23 20:18 Ur Specific [place] 1.015 (1.005-1.030) 02/25/23 20:18 Urine Protein Neg (Negative) 02/25/23 20:18 Urine Glucose (UA) Norm (Normal) 02/25/23 20:18 Urine Ketones Negative (Negative) 02/25/23 20:18 Urine Blood Neg (Negative) 02/25/23 20:18 Urine Nitrate Negative (Negative) 02/25/23 20:18 Urine Bilirubin Neg (Negative) 02/25/23 20:18 Urine Urobilinogen Norm mg/dL (Negative) 02/25/23 20:18 Ur Leukocyte Esterase Negative (Negative) 02/25/23 20:18 SARS-CoV-2 Ag (Rapid) negative (Negative) 02/25/23 19:27 Discharge Plan Discharge Patient Disposition: Home Clinical Impression: Abdominal pain Condition: Stable Prescriptions: New ondansetron 4 mg tablet,disintegrating 4 mg PO Q8H PRN (Reason: nausea and vomiting) Qty: 15 0RF oxycodone 5 mg tablet 5 mg PO Q4H PRN (Reason: pain) Qty: 10 0RF No Action metoprolol succinate 25 mg tablet extended release 24 hr 25 mg PO DAILY benzonatate 100 mg Capsule 100 mg PO TID PRN (Reason: cough) Qty: 10 0RF ferrous gluconate 324 mg (37.5 mg iron) Tablet 324 mg PO BIDWM Qty: 60 0RF zinc gluconate 50 mg Tablet 50 mg PO DAILY Qty: 14 0RF dexamethasone 6 mg tablet 6 mg PO Q24H Qty: 7 0RF Rx Instructions: for up to 10 days hydrocodone-acetaminophen 5-325 mg tablet 1 tab PO Q6H PRN (Reason: pain) Qty: 14 0RF Cipro 500 mg tablet 500 mg PO BID Qty: 14 0RF ondansetron 4 mg tablet,disintegrating 4 mg PO Q6H PRN (Reason: nausea and vomiting) Qty: 14 0RF Discharge Orders: Discharge ED (Routine); Ordered 02/25/23 Ordered By: Nabeel Shipley Referrals: Gunner Dennis MD [Primary Care Provider] - Discharge Diet: Advance as tolerated and Clear Liquid Discharge Activity: Increase activity as tolerated Patient Instructions: Abdominal Pain (ED), Opioid Safety Activity Restrictions/Additional Instructions: Thank you for visiting the emergency department. You were seen and evaluated for abdominal pain in the context of recent diagnosis of diverticulitis. The exact cause of your symptoms is unclear. You are found to have dehydration. We are pleased that you had improvement with treatment. I will prescribe pain medication and antinausea medication. Please continue your antibiotics. Please follow-up with your primary care provider. Use pain medications cautiously, do not operate machinery or drive while taking these medications, watch for signs of oversedation, do not combine with other sedating medications or substances. You may use [id number] medications such as acetaminophen and ibuprofen for pain however please do not exceed the daily recommended dosage as listed on the packaging and please keep in mind that many namebrand medications contain the same active ingredients. Please avoid these medications if previously instructed to do so by another physician due to other underlying medical condition. 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
[2023-02-25 18:30] LABS: Alanine Aminotransferase 115 U/L (0-41); Albumin Level 4.4 g/dL (3.5-5.2); Alkaline Phosphatase 71 U/L (40-130); Anion Gap 16.3 (5-19); Aspartate Amino Transferase 75 U/L (0-40); Blood Urea Nitrogen 10 mg/dL (6-20); Carbon Dioxide 23 mmol/L (22-29); Chloride 105 mmol/L (98-107); Globulin 2.7 g/dL (1.3-4.6); Glomerular Filtration Rate 176.7 mL/min (90-130); Glucose 81 mg/dL (65-115); Lipase 21 U/L (13-60); Osmolality Calculated 288 mOsm/kg (285-295); Potassium 4.3 mmol/L (3.5-5.1); Sodium 140 mmol/L (136-145); Total Bilirubin 1.4 mg/dL (0.15-1.2); Total Protein 7.1 g/dL (6.6-8.7)
[2023-02-25] MEDS: sodium chloride 0.9% 1,000 ML 999 ML IV (19:22)
[2023-02-25] MEDS: morphine 4 mg/mL SDV 1 mL IVP (19:22)
[2023-02-25] MEDS: ondansetron 2 mg/ML SDV 2 mL 4 MG IVP (19:23)
[2023-02-25 19:30] VITALS: BP 145/101; PULSE 80; RESP 16; O2SAT 95
--- NOTE | 2023-02-25 19:33 | CTR_ITS ---
PROCEDURE INFORMATION: Exam: CT Abdomen And Pelvis With Contrast Exam date and time: 02/25/2023 7:42 PM Age: 48 years old Clinical indication: Abdominal pain; Localized; Left lower quadrant (llq); Prior surgery; Surgery date: 6+ months; Surgery type: Appendectomy; Additional info: Llq pain TECHNIQUE: Imaging protocol: Computed tomography of the abdomen and pelvis with contrast. Sagittal and coronal reformatted images were created and reviewed. Radiation optimization: All CT scans at this facility use at least one of these dose optimization techniques: automated exposure control; mA and/or kV adjustment per patient size (includes targeted exams where dose is matched to clinical indication); or iterative reconstruction. Contrast material: OMNI 350; Contrast volume: 100 ml; Contrast route: INTRAVENOUS (IV); REPORTING DATA: Count of CT and Cardiac NM exams in prior 12 months: This patient has received 3 known CTs and 0 known cardiac nuclear medicine studies in the 12 months prior to the current study. COMPARISON: CT abdomen pelvis w con* [id number] 01/25/2023 10:14 PM RADIATION DOSE METRICS: Total DLP (mGy-cm): 957.03 FINDINGS: Lungs: Visualized lungs are clear. Pleural spaces: No pleural effusion. Heart: Visualized portions of the heart are unremarkable. Liver: Diffuse, mildly decreased attenuation in the liver. Findings are stable and consistent with mild fatty infiltration. Gallbladder and bile ducts: The gallbladder is unremarkable. No biliary ductal dilatation. Pancreas: The pancreas is unremarkable. No pancreatic ductal dilatation. Spleen: The spleen is unremarkable. Adrenal glands: The right and left adrenal glands are unremarkable. Kidneys and ureters: The right and left kidneys are unremarkable. The right and left ureters are unremarkable. Stomach and bowel: Increased fecal content in the colon. Fatty infiltration of the wall of the stomach and distal small bowel. Findings suggest sequela of chronic inflammation. Appendix: The patient has had a previous appendectomy. Intraperitoneal space: No free intraperitoneal air. No ascites. No loculated fluid collections to suggest an abscess. Vasculature: No evidence for aortic aneurysm or aortic dissection. Lymph nodes: No lymphadenopathy. Urinary bladder: Unremarkable as visualized. Reproductive: Stable nonspecific parenchymal calcifications in the prostate gland. Bones/joints: Degenerative changes in the spine. Soft tissues: No acute abnormality in the extra-abdominal soft tissues. CT/CT abdomen pelvis w con* [id number] IMPRESSION: 1. Increased fecal content in the colon. 2. Stable mild fatty infiltration of the liver. 3. Incidental/nonacute findings are listed in the report.
[2023-02-25] MEDS: iohexol 350 mg/mL 500 mL Btl (per mL) IV (19:37)
[2023-02-25 19:51] LABS: SARS Covid-2 Antigen negative (Negative)
[2023-02-25 20:23] LABS: Add Urine Microscopic? NO; Charge for UA Resulting for Rev
[2023-02-25 20:44] LABS: Bilirubin Urine Neg (Negative); Blood Urine Neg (Negative); Glucose Urine UA Norm (Normal); Ketones Urine Negative (Negative); Leukocyte Esterase Urine Negative (Negative); Nitrate Urine Negative (Negative); Protein Urine Neg (Negative); Specific Gravity, Urine 1.015 (1.005-1.030); Urine Appearance Clear (CLEAR); Urine Color Yellow (Yellow); Urobilinogen Urine Norm (Negative); pH Urine 5 (5-7)
[2023-02-25 20:47] VITALS: RESP 16
[2023-02-25] MEDS: dicyclomine 10 mg Capsule PO (20:47)
[2023-02-25] MEDS: fentaNYL 50 mcg/mL INJ 2mL IVP (20:47)
[2023-02-25 21:55] VITALS: BP 157/111; PULSE 75; RESP 16; O2SAT 95
== END 2023-02-25 21:57 | disposition home or self-care (01) ==
PROVIDERS: Nurse Practitioner Family; Emergency Provider Emergency Medicine; PCP Family Medicine
DX: R10.32 Left lower quadrant pain (principal); Z20.822 Contact with and (suspected) exposure to COVID-19; I10 Essential (primary) hypertension
CPT/HCPCS: 36415; 74177; 80053; 81003; 83690; 85025; 87426; 96361; 96374; 96375; 99285; J2270; J2405; J3010; J7030; Q9967

== ENCOUNTER 2024-01-19 14:55 | Emergency (ER) | payer BC, OTHER, SELFPAY ==
[2024-01-19 15:00] VITALS: BP 115/110; PULSE 105; RESP 16; TEMP 37.1; O2SAT 98; BMI 28.2
--- NOTE | 2024-01-19 15:07 | W.ED.BACK ---
HPI - Back Pain/Injury General: Chief Complaint: Back Pain/Injury Stated Complaint: back pain Time Seen by Provider: 01/19/24 15:07 History of Present Illness: 49-year-old male patient comes in today for complaints of mid to low back pain. Patient reports lifting a 30 pound box about 3 days ago and since then had increased pain and discomfort. Patient reports worsening pain daily. Patient reports decrease in activity. Patient appears in moderate to severe pain. Patient appears nontoxic. Patient denies any loss of bowel or bladder control. Review of Systems General: Reports: 10 or more systems reviewed and unremarkable except in HPI and below Musc: Reports: back pain PFSH ED PFSH: Medical History Hypertension Surgical History History of appendectomy Family History Father Hypertension Social History Smoking and tobacco/nicotine status: never used tobacco/nicotine Alcohol intake: never Substance/Drug Use: never Physical Exam Const: COMMON NORMALS: alert HENMT: COMMON NORMALS: normocephalic HEAD & SCALP: normocephalic Neck/C-Spine: COMMON NORMALS: full ROM Resp: COMMON NORMALS: normal respiratory effort and clear to auscultation bilaterally AUSCULTATION: clear to auscultation bilaterally Cardio: COMMON NORMALS: regular rate RATE: regular rate Back/Pelvis: THORACIC SPINE/UPPER BACK: Yes paraspinal muscle tenderness LUMBAR SPINE/LOWER BACK: Yes paraspinal muscle tenderness Extremity: COMMON NORMALS: full ROM Neuro: SENSORIUM/ORIENTATION: Yes alert Skin: COMMON NORMALS: turgor normal GENERAL SKIN EXAM: turgor normal Course Vital Signs: Vital signs: Vital Signs Temperature 98.7 F 01/19/24 15:00 Pulse Rate 105 H 01/19/24 15:00 Respiratory Rate 16 01/19/24 15:00 Blood Pressure 115/110 01/19/24 15:00 Pulse Oximetry 98 01/19/24 15:00 Oxygen Delivery Me thod Room Air 01/19/24 15:00 MDM - Back Pain/Injury Medical Decision Making 49-year-old male patient comes in today with complaints of back pain. On exam patient has muscle tenderness of the mid thoracic and upper lumbar. No point tenderness is noted along the spine. Patient moves all extremities well. Patient denies any loss of bowel or bladder control. Vital signs are normal. Differential diagnosis includes but not limited to intervertebral disc disease, facet arthropathy, muscle strain. Reviewed exam with patient with recommendations for treatment for muscle strain. Patient was recommended to follow-up in 1 week with primary care. Patient was recommended to return to the ER as needed for worsening signs or symptoms. No radiology studies performed this visit Discharge Plan Discharge Patient Disposition: Home Clinical Impression: Strain of lumbar region Qualifiers: Encounter type: initial encounter Qualified Code(s): S39.012A - Strain of muscle, fascia and tendon of lower back, initial encounter Condition: Stable Prescriptions: New diclofenac sodium 75 mg tablet,delayed release (DR/EC) 75 mg PO BID Qty: 14 0RF Rx Instructions: hold meloxicam while taking Continued hydrocodone-acetaminophen 5-325 mg tablet 1 tab PO Q6H PRN (Reason: pain) Qty: 14 0RF No Action metoprolol succinate 25 mg tablet extended release 24 hr 25 mg PO DAILY benzonatate 100 mg Capsule 100 mg PO TID PRN (Reason: cough) Qty: 10 0RF ferrous gluconate 324 mg (37.5 mg iron) Tablet 324 mg PO BIDWM Qty: 60 0RF zinc gluconate 50 mg Tablet 50 mg PO DAILY Qty: 14 0RF dexamethasone 6 mg tablet 6 mg PO Q24H Qty: 7 0RF Rx Instructions: for up to 10 days Cipro 500 mg tablet 500 mg PO BID Qty: 14 0RF ondansetron 4 mg tablet,disintegrating 4 mg PO Q6H PRN (Reason: nausea and vomiting) Qty: 14 0RF ondansetron 4 mg tablet,disintegrating 4 mg PO Q8H PRN (Reason: nausea and vomiting) Qty: 15 0RF oxycodone 5 mg tablet 5 mg PO Q4H PRN (Reason: pain) Qty: 10 0RF Discharge Orders: Discharge ED (Routine); Ordered 01/19/24 Ordered By: Mikael Akhtar Referrals: Gunner Dennis MD [Primary Care Provider] - Discharge Diet: Usual diet Discharge Activity: Increase activity as tolerated Patient Instructions: Back Pain (ED), Opioid Safety, Pain Management Activity Restrictions/Additional Instructions: Activity as tolerated. Gentle stretching range of motion exercises. Follow-up with primary care in 1 week for recheck. Return to ED for new concerns. 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
[2024-01-19] MEDS: HYDROcodone-acetaminophen 10-325 mg Tablet 1 TAB PO (15:20)
[2024-01-19] MEDS: dexamethasone 10 mg/mL INJ IM (15:21)
[2024-01-19] MEDS: ketorolac 30 mg/mL INJ IM (15:21)
== END 2024-01-19 15:37 | disposition home or self-care (01) ==
PROVIDERS: Emergency Provider Nurse Practitioner Family; PCP Family Medicine
DX: S39.012A Strain of muscle, fascia and tendon of lower back, initial encounter (principal); I10 Essential (primary) hypertension; X50.0XXA Overexertion from strenuous movement or load, initial encounter
CPT/HCPCS: 96372; 99284; J1100; J1885

== ENCOUNTER 2024-06-28 15:02 | Emergency (ER) | payer BC, OTHER, SELFPAY ==
[2024-06-28 15:06] VITALS: BP 177/138; PULSE 133; RESP 16; TEMP 36.5; O2SAT 96; BMI 29.5
--- NOTE | 2024-06-28 17:28 | XRR_ITS ---
PROCEDURE INFORMATION: Exam: XR Chest Exam date and time: 06/28/2024 5:45 PM Age: 49 years old Clinical indication: Dyspnea; Additional info: Dyspnea/cough, headache TECHNIQUE: Imaging protocol: Radiologic exam of the chest. Views: 1 view. COMPARISON: CR (CHEST, ) 05/11/2022 5:26 PM FINDINGS: Lungs: Mild chronic scarring in the left costophrenic sulcus is unchanged from 05/11/2022. No new focal airspace opacity. Pleural spaces: No pneumothorax. No pleural effusion. Heart/Mediastinum: Unremarkable. No cardiomegaly. Bones/joints: Unremarkable. XR/XR chest 1V portable [id number] IMPRESSION: No acute plain radiographic cardiopulmonary abnormality. Chronic mild residual scar in the left costophrenic sulcus.
--- NOTE | 2024-06-28 17:28 | ECG_ITS ---
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 Measurements Intervals [place] Rate: 103 P: 63 KS: 183 QRS: 48 QRSD: 98 T: 75 QT: 341 QTc: 446 Interpretive Statements SINUS TACHYCARDIA INFERIOR MYOCARDIAL INFARCTION , OF INDETERMINATE AGE [40+ ms Q WAVE AND/OR ST/T ABNORMALITY IN II/aVF] Compared to ECG 05/11/2022 18:19:31 Myocardial infarct finding now present Electronically Signed On 06-29-2024 9:09:41 CDT by Cj Sandoval M.D. [id number]
--- NOTE | 2024-06-28 17:29 | W.ED.HA ---
HPI - Headache General: Chief Complaint: Headache Stated Complaint: headache Time Seen by Provider: 06/28/24 15:43 History of Present Illness: 49-year-old male presents emergency room complaining of cough and shortness of breath. His daughter tested positive for COVID he was started on Paxlovid but he has not been tested. Complaining of headache and diarrhea the last couple days. Associated symptoms: Reports fever(s) and malaise; Deny chest pain or rash Review of Systems Const: Reports: fever(s), chills, fatigue and malaise Card: Denies: chest pain Resp: Denies: dyspnea GI: Denies: abdominal pain : Denies: dysuria, urinary frequency or urinary urgency Musc: Denies: neck pain or back pain Skin/Breast: Denies: rash Neuro: Reports: headache(s) PFS ED PFSH: Medical History Hypertension Surgical History History of appendectomy Family History Father Hypertension Social History Smoking and tobacco/nicotine status: never used tobacco/nicotine Alcohol intake: never Substance/Drug Use: never Physical Exam Const: COMMON NORMALS: no acute distress GENERAL APPEARANCE: cooperative and comfortable ORIENTATION/CONSCIOUSNESS: Yes awake, Yes oriented to person, Yes oriented to place and Yes oriented to time HENMT: COMMON NORMALS: normocephalic, atraumatic and hearing grossly normal bilaterally HEAD & SCALP: normocephalic and atraumatic Neck/C-Spine: OTHER: No meningeal signs Resp: COMMON NORMALS: normal respiratory effort, No retractions and No use of accessory muscles AUSCULTATION: crackles and wheezes Cardio: COMMON NORMALS: regular rate, regular rhythm and No murmurs present (Cardio) RATE: regular rate RHYTHM: regular rhythm GI: COMMON NORMALS: Soft to palpation and No hepatosplenomegaly present AUSCULTATION: Yes normoactive bowel sounds PALPATION: Yes Soft to palpation, No Tenderness to palpation present (GI), No Guarding due to palpation present (GI) and Yes No hepatosplenomegaly present Extremity: COMMON NORMALS: normal to inspection, capillary refill normal, no clubbing, cyanosis or edema, no calf tenderness and no pedal edema Neuro: SENSORIUM/ORIENTATION: Yes oriented to person, Yes oriented to place and Yes oriented to time Skin: COMMON NORMALS: no rashes or lesions noted GENERAL SKIN EXAM: no rashes or lesions noted Course Vital Signs: Vital signs: Vital Signs Temperature 97.7 F 06/28/24 19: Pulse Rate 82 06/28/24 19: Respiratory Rate 16 06/28/24 19: Blood Pressure 160/120 06/28/24 19: Pulse Oximetry 96 06/28/24 19: Oxygen Delivery Me thod Room Air 06/28/24 19:06 MDM - Headache Medical Decision Making Labs and imaging reviewed. No acute findings. Blood pressure is slightly elevated which is typical with acute COVID. Patient given medications for his hypertension. He has no meningeal signs. He is concerned because of the last time he had COVID he had a severe headache and the headache was thought to be due to meningitis. Reviewed to records from that visit looks like he may have had a viral meningitis cultures never grew anything out. At this point he has no meningeal signs recommend he follow-up with his primary care doctor to treat blood pressure. Lab Data 06/28/24 17:55 06/28/24 17:55 Radiology Impressions Chest X-Ray 06/28/24 17:28 IMPRESSION: No acute plain radiographic cardiopulmonary abnormality. Chronic mild residual scar in the left costophrenic sulcus. Laboratory Results WBC 10.53 10^3/uL (3.29-11.43) 06/28/24 17:55 RBC 6.08 10^6/uL (3.85-5.65) H 06/28/24 17:55 Hgb 18.00 g/dL (11.27-16.99) H 06/28/24 17:55 Hct 53.2 % (37-53) H 06/28/24 17:55 MCV 87.5 fl (82-101) 06/28/24 17:55 MCH 29.6 pg (27-33) 06/28/24 17:55 MCHC 33.8 g/dL (30-55) 06/28/24 17:55 RDW 13.2 % (12.1-15.1) 06/28/24 17:55 Plt Count 267 10^3/cmm (157-399) 06/28/24 17:55 MPV 10.9 fL (7.4-10.4) H 06/28/24 17:55 Neut % (Auto) 59.3 % 06/28/24 17:55 Lymph % (Auto) 22.9 % 06/28/24 17:55 [place] % (Auto) 12.8 % 06/28/24 17:55 Eos % (Auto) 3.7 % 06/28/24 17:55 Baso % (Auto) 0.6 % 06/28/24 17:55 Neut # (Auto) 6.25 10^3/uL (1.8-7.7) 06/28/24 17:55 Lymph # (Auto) 2.4 10^3/uL (0.8-4.8) 06/28/24 17:55 [place] # (Auto) 1.4 10^3/uL (0.2-0.9) H 06/28/24 17:55 Eos # (Auto) 0.4 10^3/uL (0.0-0.8) 06/28/24 17:55 Baso # (Auto) 0.1 10^3/uL (0.0-0.1) 06/28/24 17:55 Nucleated RBC % (auto) 0 % 06/28/24 17:55 Nucleated RBCs # 0.0 /100WBC 06/28/24 17:55 Sodium 141 mmol/L (136-145) 06/28/24 17:55 Potassium 4.0 mmol/L (3.5-5.1) 06/28/24 17:55 Chloride 106 mmol/L (98-107) 06/28/24 17:55 Carbon Dioxide 25 mmol/L (22-29) 06/28/24 17:55 Anion Gap 14.0 (5-19) 06/28/24 17:55 BUN 7 mg/dL (6-20) 06/28/24 17:55 Creatinine 0.7 mg/dL (0.7-1.2) 06/28/24 17:55 GFR Calculation 119.4 mL/min (90-130) 06/28/24 17:55 Glucose 77 mg/dL (65-115) 06/28/24 17:55 Calculated Osmolality 289 mOsm/kg (285-295) 06/28/24 17:55 Calcium 9.0 mg/dL (8.5-10.5) 06/28/24 17:55 Total Bilirubin 1.1 mg/dL (0.15-1.2) 06/28/24 17:55 AST 52 U/L (0-40) H 06/28/24 17:55 ALT 127 U/L (0-41) H 06/28/24 17:55 Alkaline Phosphatase 87 U/L (40-130) 06/28/24 17:55 Total Protein 7.3 g/dL (6.6-8.7) 06/28/24 17:55 Albumin 4.2 g/dL (3.5-5.2) 06/28/24 17:55 Globulin 3.1 g/dL (1.3-4.6) 06/28/24 17:55 Coronavirus 229E (PCR) Not detected (NOT DETECT) 06/28/24 17:55 SARS-CoV-2 (PCR) Not detected (NOT DETECT) 06/28/24 17:55 All radiology interpretation(s) finalized by discharge Discharge Plan Discharge Patient Disposition: Home Clinical Impression: COVID Condition: Stable Prescriptions: No Action metoprolol succinate 25 mg tablet extended release 24 hr 25 mg PO DAILY benzonatate 100 mg Capsule 100 mg PO TID PRN (Reason: cough) Qty: 10 0RF ferrous gluconate 324 mg (37.5 mg iron) Tablet 324 mg PO BIDWM Qty: 60 0RF zinc gluconate 50 mg Tablet 50 mg PO DAILY Qty: 14 0RF dexamethasone 6 mg tablet 6 mg PO Q24H Qty: 7 0RF Rx Instructions: for up to 10 days Cipro 500 mg tablet 500 mg PO BID Qty: 14 0RF ondansetron 4 mg tablet,disintegrating 4 mg PO Q6H PRN (Reason: nausea and vomiting) Qty: 14 0RF diclofenac sodium 75 mg tablet,delayed release (DR/EC) 75 mg PO BID Qty: 14 0RF Rx Instructions: hold meloxicam while taking hydrocodone-acetaminophen 5-325 mg tablet 1 tab PO Q6H PRN (Reason: pain) Qty: 14 0RF ondansetron 4 mg tablet,disintegrating 4 mg PO Q8H PRN (Reason: nausea and vomiting) Qty: 15 0RF oxycodone 5 mg tablet 5 mg PO Q4H PRN (Reason: pain) Qty: 10 0RF Discharge Orders: Discharge ED (Routine); Ordered 06/28/24 Ordered By: Nathan Flores Referrals: Janelle Lockwood PA [Primary Care Provider] - Discharge Diet: Usual diet Discharge Activity: Resume usual activity Patient Instructions: Opioid Safety, Pain Management Activity Restrictions/Additional Instructions: Thank you for choosing [facility] for your healthcare needs today. It is very important that you follow up as instructed or that you return to the Emergency Department should you have concerns or if your condition changes or worsens in any way. You were seen today with headache and COVID symptoms. Given your known exposure family members COVID most likely do have COVID. Headache is frequently a symptom of COVID. There is no meningeal signs at this time. Recommend that he stop the Paxlovid as I can have a side effect of headaches. On exam today your chest x-ray was normal. You are not requiring any oxygen. Coding Level of Care Code ED Artists' Model for Tony Jean
[2024-06-28 17:43] VITALS: BP 137/112; PULSE 86; O2SAT 95
[2024-06-28] MEDS: sodium chloride 0.9% 1,000 ML 999 ML IV (17:57)
[2024-06-28 18:28] LABS: Basophils # 0.1 10^3/uL (0.0-0.1); Basophils % 0.6 %; Eosinophils # 0.4 10^3/uL (0.0-0.8); Eosinophils % 3.7 %; Hematocrit 53.2 % (37-53); Lymphocytes # 2.4 10^3/uL (0.8-4.8); Lymphocytes % 22.9 %; Mean Corpuscular HGB Conc 33.8 g/dL (30-55); Mean Corpuscular Hemoglobin 29.6 pg (27-33); Mean Corpuscular Volume 87.5 fl (82-101); Mean Platelet Volume 10.9 fL (7.4-10.4); Monocytes # 1.4 10^3/uL (0.2-0.9); Monocytes % 12.8 %; Neutrophils # 6.25 10^3/uL (1.8-7.7); Neutrophils % 59.3 %; Nucleated Red Blood Cells % 0 %; Platelet Count 267 10^3/cmm (157-399); Red Blood Count 6.08 10^6/uL (3.85-5.65); Red Cell Distribution Width 13.2 % (12.1-15.1); White Blood Count 10.53 10^3/uL (3.29-11.43)
[2024-06-28] MEDS: ondansetron 2 mg/ML SDV 2 mL 4 MG IVP (18:28)
[2024-06-28] MEDS: ketorolac 30 mg/mL INJ IVP (18:28)
[2024-06-28 18:30] VITALS: BP 168/121; PULSE 83; O2SAT 97
[2024-06-28 18:36] LABS: Alanine Aminotransferase 127 U/L (0-41); Albumin Level 4.2 g/dL (3.5-5.2); Alkaline Phosphatase 87 U/L (40-130); Aspartate Amino Transferase 52 U/L (0-40); Blood Urea Nitrogen 7 mg/dL (6-20); Carbon Dioxide 25 mmol/L (22-29); Chloride 106 mmol/L (98-107); Globulin 3.1 g/dL (1.3-4.6); Glomerular Filtration Rate 119.4 mL/min (90-130); Glucose 77 mg/dL (65-115); Osmolality Calculated 289 mOsm/kg (285-295); Sodium 141 mmol/L (136-145); Total Bilirubin 1.1 mg/dL (0.15-1.2); Total Protein 7.3 g/dL (6.6-8.7)
[2024-06-28 19:06] VITALS: BP 163/122; PULSE 82; RESP 16; O2SAT 96
[2024-06-28] MEDS: metoprolol tartrate 1 mg/1 mL SDV 5 mL 5 MG IVP (19:08)
[2024-06-28 19:26] VITALS: BP 160/120; PULSE 82; RESP 16; TEMP 36.5; O2SAT 96
[2024-06-28 19:58] LABS: Adenovirus Not Detected (NOT DETECT); Chlamydia Pneumoniae Not Detected (NOT DETECT); Coronavirus 229E,HKU1,NL63,OC4 Not Detected (NOT DETECT); Human Metapneumovirus Not Detected (NOT DETECT); Human Rhinovirus/Enterovirus Not Detected (NOT DETECT); Influenza A Not Detected (NOT DETECT); Influenza A H1 Not Detected (NOT DETECT); Influenza A H1-2009 Not Detected (NOT DETECT); Influenza A H3 Not Detected (NOT DETECT); Influenza B Not Detected (NOT DETECT); Mycoplasma Pneumoniae Not Detected (NOT DETECT); Parainfluenza Virus Type 1 Not Detected (NOT DETECT); Parainfluenza Virus Type 2 Not Detected (NOT DETECT); Parainfluenza Virus Type 3 Not Detected (NOT DETECT); Parainfluenza Virus Type 4 Not Detected (NOT DETECT); Respiratory Syncytial Virus A Not Detected (NOT DETECT); Respiratory Syncytial Virus B Not Detected (NOT DETECT); SARS-COV-2 Not Detected (NOT DETECT)
== END 2024-06-28 19:27 | disposition home or self-care (01) ==
PROVIDERS: Emergency Provider Family Medicine; PCP Physician Assistant
DX: U07.1 COVID-19 (principal); I10 Essential (primary) hypertension
CPT/HCPCS: 71045; 80053; 85025; 87635; 93005; 96361; 96374; 96375; 99285; J1885; J2405; J3490; J7030

== ENCOUNTER 2024-08-13 12:07 | Oncology outpatient (recurring) (ONCR) | payer BC, OTHER, SELFPAY ==
[2024-08-13 14:12] LABS: Basophils # 0.1 10^3/uL (0.0-0.1); Basophils % 0.3 %; Eosinophils # 0.2 10^3/uL (0.0-0.8); Eosinophils % 1.3 %; Hematocrit 49.6 % (37-53); Lymphocytes # 3.3 10^3/uL (0.8-4.8); Lymphocytes % 17.5 %; Mean Corpuscular HGB Conc 35.3 g/dL (30-55); Mean Corpuscular Hemoglobin 29.6 pg (27-33); Mean Corpuscular Volume 83.8 fl (82-101); Mean Platelet Volume 10.4 fL (7.4-10.4); Monocytes # 1.9 10^3/uL (0.2-0.9); Monocytes % 10.1 %; Neutrophils % 69.2 %; Nucleated Red Blood Cells % 0 %; Platelet Count 379 10^3/cmm (157-399); Red Blood Count 5.92 10^6/uL (3.85-5.65); Red Cell Distribution Width 12.7 % (12.1-15.1)
[2024-08-13 14:53] LABS: Alanine Aminotransferase 84 U/L (0-41); Albumin Level 3.9 g/dL (3.5-5.2); Alkaline Phosphatase 69 U/L (40-130); Anion Gap 12.7 (5-19); Aspartate Amino Transferase 33 U/L (0-40); Blood Urea Nitrogen 15 mg/dL (6-20); Carbon Dioxide 25 mmol/L (22-29); Chloride 103 mmol/L (98-107); Creatinine Clr Calc Pharmacy 189.7358; Ferritin 751 ng/mL (30-400); Globulin 2.6 g/dL (1.3-4.6); Glomerular Filtration Rate 142.6 mL/min (90-130); Glucose 138 mg/dL (65-115); Iron 65 ug/dL (59-158); Osmolality Calculated 287 mOsm/kg (285-295); Potassium 3.7 mmol/L (3.5-5.1); Sodium 137 mmol/L (136-145); Total Iron Binding Capacity 216 mcg/dl; Total Protein 6.5 g/dL (6.6-8.7); Unsaturated Iron Binding 151 ug/dL (112-347)
[2024-08-13 15:23] VITALS: BP 137/98; PULSE 91; RESP 16; TEMP 36.9; O2SAT 95
== END 2024-08-27 23:59 | disposition home or self-care (01) ==
PROVIDERS: PCP Physician Assistant; Visit Provider Internal Medicine Medical Oncology
DX: E83.119 Hemochromatosis, unspecified (principal); Z79.899 Other long term (current) drug therapy
CPT/HCPCS: 36415; 80053; 82728; 83540; 83550; 85025; 99195

== ENCOUNTER 2024-09-25 08:08 | Outpatient (CLI) | payer OTHER, BC, SELFPAY ==
--- NOTE | 2024-09-25 08:12 | USCV_ITS ---
Kedar Coleman Age: 49 Gender: M : 1975 Exam Date: 09/25/2024 08:34 Ordering Phys: Janelle Lockwood Technologist: CT Exam Location: [facility] [place]_ Indication: BP: 145 / 90 HR: 85 Rhythm: Sinus Technical Quality: Adequate MEASUREMENTS (Male / Female) Normal Values 2D ECHO LVOT Diameter 2.3 cm LV Ejection Fraction MOD 4C 64.7 % LV Ejection Fraction MOD 2C 57.1 % LV Ejection Fraction 2C AL 60.4 % LA Diameter 3.4 cm RA Systolic Volume 4C AL 18.3 ml RA Systolic Volume 4C MOD 16.6 ml LA Sys Volume AL 21.6 cm cubed LA Sys Volume Index AL 8.8 cm cubed/m squared Aorta at Sinotubular Diameter 3.5 cm DOPPLER AV Peak Velocity 85.0 cm/s LVOT Peak Velocity 64.0 cm/s AV Area Cont Eq vti 3.4 cm squared AV Area Cont Eq pk 3.0 cm squared MV Peak Velocity 75.0 cm/s MV Area PHT 6.1 cm squared Mitral E to A Ratio 1.6 TR Peak Velocity 168.0 cm/s TR Peak Gradient 11.3 mmHg TV Peak E Velocity 56.0 cm/s Right Atrial Pressure 3.0 mmHg Pulmonary Artery Systolic Pressu 14.3 mmHg PV Peak Velocity 69.0 cm/s FINDINGS Left Ventricle Normal left ventricular size, systolic function and wall thickness, with no regional wall motion abnormalities. Left ventricular ejection fraction is estimated at 64 %. Right Ventricle Normal right ventricular size and systolic function. Right Atrium Normal right atrial size. Left Atrium Normal left atrial size. Mitral Valve Structurally normal mitral valve. Trace mitral valve regurgitation. Aortic Valve Structurally normal trileaflet aortic valve. No aortic valve regurgitation. No aortic valve stenosis. Tricuspid Valve Structurally normal tricuspid valve. Trace tricuspid valve regurgitation. Pulmonic Valve Structurally normal pulmonic valve. Trace pulmonary valve regurgitation. Pericardium No pericardial effusion. Aorta Normal size aortic root. IVC Inferior vena cava not visualized. CONCLUSIONS Normal left ventricular systolic function. Estimated LVEF normal 64%. Normal chamber sizes. No significant valvular abnormality noted. Normal right heart and pulmonary pressures. Dean Landis MD (Electronically Signed) Final Date: 25 September 2024 13:02 S
== END 2024-09-25 08:09 | disposition home or self-care (01) ==
LOC: RAD 08:09
PROVIDERS: PCP Physician Assistant; Visit Provider Physician Assistant
DX: R00.0 Tachycardia, unspecified (principal)
CPT/HCPCS: 93306

== ENCOUNTER → 2024-10-31 12:59 | Outpatient (BNVA) | payer OTHER, BC, SELFPAY | PROVIDERS: PCP Physician Assistant; Visit Provider Internal Medicine | DX: R07.9 Chest pain, unspecified (principal); R00.0 Tachycardia, unspecified; I45.10 Unspecified right bundle-branch block | CPT/HCPCS: 93005 ==

== ENCOUNTER 2024-11-27 08:30 | Oncology outpatient (recurring) (ONCR) | payer OTHER, BC, SELFPAY ==
[2024-11-08 14:30] LABS: Basophils # 0.1 10^3/uL (0.0-0.1); Eosinophils # 0.2 10^3/uL (0.0-0.8); Hematocrit 51.9 % (37-53); Lymphocytes # 1.5 10^3/uL (0.8-4.8); Lymphocytes % 21.4 %; Mean Corpuscular HGB Conc 33.7 g/dL (30-55); Mean Corpuscular Hemoglobin 29.3 pg (27-33); Mean Corpuscular Volume 86.8 fl (82-101); Mean Platelet Volume 10.9 fL (7.4-10.4); Monocytes # 0.7 10^3/uL (0.2-0.9); Monocytes % 9.4 %; Neutrophils # 4.51 10^3/uL (1.8-7.7); Neutrophils % 64.5 %; Nucleated Red Blood Cells % 0 %; Platelet Count 288 10^3/cmm (157-399); Red Blood Count 5.98 10^6/uL (3.85-5.65); Red Cell Distribution Width 12.9 % (12.1-15.1)
[2024-11-08 15:04] LABS: Alanine Aminotransferase 76 U/L (0-41); Albumin Level 4.2 g/dL (3.5-5.2); Alkaline Phosphatase 82 U/L (40-130); Anion Gap 13.9 (5-19); Aspartate Amino Transferase 43 U/L (0-40); Blood Urea Nitrogen 11 mg/dL (6-20); Calcium 9.3 mg/dL (8.5-10.5); Carbon Dioxide 25 mmol/L (22-29); Chloride 104 mmol/L (98-107); Ferritin 601 ng/mL (30-400); Globulin 2.8 g/dL (1.3-4.6); Glomerular Filtration Rate 119.4 mL/min (90-130); Glucose 97 mg/dL (65-115); Iron 99 ug/dL (59-158); Osmolality Calculated 287 mOsm/kg (285-295); Percent Saturation 38.3 % (20-50); Potassium 3.9 mmol/L (3.5-5.1); Sodium 139 mmol/L (136-145); Total Bilirubin 1.7 mg/dL (0.15-1.2); Total Iron Binding Capacity 258 mcg/dl; Unsaturated Iron Binding 159 ug/dL (112-347)
[2024-11-27 08:33] VITALS: BP 169/127; PULSE 84; RESP 15; TEMP 36.6; O2SAT 94
[2024-11-27 09:35] VITALS: BP 145/82; PULSE 82; RESP 17; TEMP 36.6; O2SAT 96
== END 2024-11-27 23:59 | disposition home or self-care (01) ==
PROVIDERS: Internal Medicine Medical Oncology; PCP Physician Assistant; Visit Provider Internal Medicine Medical Oncology
DX: Z53.9 Procedure and treatment not carried out, unspecified reason (principal)
CPT/HCPCS: 36415; 80053; 82728; 83540; 83550; 85025; 99195

== ENCOUNTER 2024-12-26 08:00 | Oncology outpatient (recurring) (ONCR) | payer BC, SELFPAY ==
[2024-12-13 08:53] LABS: Basophils # 0.1 10^3/uL (0.0-0.1); Eosinophils # 0.3 10^3/uL (0.0-0.8); Eosinophils % 4.5 %; Hematocrit 46.5 % (37-53); Lymphocytes # 1.8 10^3/uL (0.8-4.8); Lymphocytes % 26.9 %; Mean Corpuscular Hemoglobin 29.2 pg (27-33); Mean Corpuscular Volume 85.8 fl (82-101); Mean Platelet Volume 10.4 fL (7.4-10.4); Monocytes % 13.9 %; Neutrophils # 3.62 10^3/uL (1.8-7.7); Neutrophils % 53.1 %; Nucleated Red Blood Cells % 0 %; Platelet Count 259 10^3/cmm (157-399); Red Blood Count 5.42 10^6/uL (3.85-5.65); Red Cell Distribution Width 13.2 % (12.1-15.1); White Blood Count 6.83 10^3/uL (3.29-11.43)
[2024-12-13 09:17] LABS: Estmated Average Glucose 82; Hemoglobin A1C 4.5 % (4.0-6.0)
[2024-12-13 09:24] LABS: Alanine Aminotransferase 67 U/L (0-41); Albumin Level 3.9 g/dL (3.5-5.2); Alkaline Phosphatase 86 U/L (40-130); Anion Gap 16.4 (5-19); Aspartate Amino Transferase 42 U/L (0-40); Blood Urea Nitrogen 12 mg/dL (6-20); Calcium 8.7 mg/dL (8.5-10.5); Carbon Dioxide 23 mmol/L (22-29); Chloride 103 mmol/L (98-107); Globulin 2.6 g/dL (1.3-4.6); Glomerular Filtration Rate 102.3 mL/min (90-130); Glucose 107 mg/dL (65-115); Osmolality Calculated 286 mOsm/kg (285-295); Potassium 4.4 mmol/L (3.5-5.1); Sodium 138 mmol/L (136-145); Thyroid Stimulating Hormone 3.72 uIU/mL (0.27-4.20); Total Bilirubin 1.5 mg/dL (0.15-1.2); Total Protein 6.5 g/dL (6.6-8.7)
[2024-12-13 09:42] LABS: Ferritin 344 ng/mL (30-400); Iron 79 ug/dL (59-158); Percent Saturation 31.7 % (20-50); Total Iron Binding Capacity 249 mcg/dl; Unsaturated Iron Binding 170 ug/dL (112-347)
[2024-12-26 08:28] LABS: Basophils % 0.6 %; Eosinophils # 0.3 10^3/uL (0.0-0.8); Hematocrit 47.3 % (37-53); Lymphocytes # 1.6 10^3/uL (0.8-4.8); Lymphocytes % 25.1 %; Mean Corpuscular HGB Conc 34.5 g/dL (30-55); Mean Corpuscular Hemoglobin 29.9 pg (27-33); Mean Corpuscular Volume 86.6 fl (82-101); Mean Platelet Volume 10.7 fL (7.4-10.4); Monocytes # 0.9 10^3/uL (0.2-0.9); Monocytes % 13.3 %; Neutrophils # 3.57 10^3/uL (1.8-7.7); Neutrophils % 55.4 %; Nucleated Red Blood Cells % 0 %; Platelet Count 282 10^3/cmm (157-399); Red Blood Count 5.46 10^6/uL (3.85-5.65); Red Cell Distribution Width 13.1 % (12.1-15.1); White Blood Count 6.45 10^3/uL (3.29-11.43)
[2024-12-26 08:47] LABS: Ferritin 225 ng/mL (30-400); Iron 58 ug/dL (59-158); Percent Saturation 22.2 % (20-50); Total Iron Binding Capacity 261 mcg/dl; Unsaturated Iron Binding 203 ug/dL (112-347)
[2024-12-26 09:53] VITALS: BP 146/76; PULSE 84; RESP 16; O2SAT 97
== END 2024-12-28 23:59 | disposition home or self-care (01) ==
PROVIDERS: Nurse Practitioner; PCP Physician Assistant; Visit Provider Internal Medicine
DX: Z53.9 Procedure and treatment not carried out, unspecified reason; E83.119 Hemochromatosis, unspecified; Z79.899 Other long term (current) drug therapy
CPT/HCPCS: 36415; 80053; 82728; 83036; 83540; 83550; 84443; 85025; 99195

== ENCOUNTER 2025-01-11 08:00 | Oncology outpatient (recurring) (ONCR) | payer BC, SELFPAY ==
[2025-01-11 08:35] LABS: Basophils % 0.6 %; Eosinophils # 0.3 10^3/uL (0.0-0.8); Eosinophils % 4.4 %; Hematocrit 46.4 % (37-53); Lymphocytes # 1.6 10^3/uL (0.8-4.8); Lymphocytes % 24.6 %; Mean Corpuscular HGB Conc 33.2 g/dL (30-55); Mean Corpuscular Hemoglobin 28.5 pg (27-33); Mean Corpuscular Volume 85.9 fl (82-101); Mean Platelet Volume 10.6 fL (7.4-10.4); Monocytes # 0.8 10^3/uL (0.2-0.9); Monocytes % 12.2 %; Neutrophils # 3.76 10^3/uL (1.8-7.7); Neutrophils % 57.4 %; Nucleated Red Blood Cells % 0 %; Platelet Count 278 10^3/cmm (157-399); Red Cell Distribution Width 12.8 % (12.1-15.1); White Blood Count 6.55 10^3/uL (3.29-11.43)
[2025-01-11 08:56] LABS: Alanine Aminotransferase 58 U/L (0-41); Alkaline Phosphatase 92 U/L (40-130); Anion Gap 12.9 (5-19); Aspartate Amino Transferase 37 U/L (0-40); Blood Urea Nitrogen 12 mg/dL (6-20); Calcium 8.9 mg/dL (8.5-10.5); Carbon Dioxide 23 mmol/L (22-29); Chloride 107 mmol/L (98-107); Ferritin 131 ng/mL (30-400); Globulin 2.5 g/dL (1.3-4.6); Glomerular Filtration Rate 119.4 mL/min (90-130); Glucose 105 mg/dL (65-115); Iron 58 ug/dL (59-158); Osmolality Calculated 288 mOsm/kg (285-295); Percent Saturation 21.2 % (20-50); Potassium 3.9 mmol/L (3.5-5.1); Sodium 139 mmol/L (136-145); Total Bilirubin 0.8 mg/dL (0.15-1.2); Total Iron Binding Capacity 273 mcg/dl; Total Protein 6.5 g/dL (6.6-8.7); Unsaturated Iron Binding 215 ug/dL (112-347)
[2025-01-11] MEDS: lisinopril 10 mg Tablet PO (10:21)
[2025-01-11 12:15] VITALS: BP 154/112; PULSE 98; RESP 18; TEMP 36.8; O2SAT 98
== END 2025-01-25 23:59 | disposition home or self-care (01) ==
PROVIDERS: PCP Physician Assistant; Visit Provider Internal Medicine
DX: Z53.9 Procedure and treatment not carried out, unspecified reason; E83.110 Hereditary hemochromatosis; Z79.899 Other long term (current) drug therapy
CPT/HCPCS: 36415; 80053; 82728; 83540; 83550; 85025; 99195

== ENCOUNTER 2025-02-07 11:00 | Oncology outpatient (recurring) (ONCR) | payer BC, SELFPAY ==
[2025-02-06 09:34] LABS: Reticulocyte % 2.2 % (0.5-2.0)
[2025-02-06 09:35] LABS: Basophils # 0.1 10^3/uL (0.0-0.1); Basophils % 0.6 %; Eosinophils # 0.2 10^3/uL (0.0-0.8); Hematocrit 49.3 % (37-53); Lymphocytes # 1.9 10^3/uL (0.8-4.8); Lymphocytes % 24.5 %; Mean Corpuscular HGB Conc 33.1 g/dL (30-55); Mean Corpuscular Hemoglobin 27.9 pg (27-33); Mean Corpuscular Volume 84.4 fl (82-101); Mean Platelet Volume 11.1 fL (7.4-10.4); Monocytes # 0.8 10^3/uL (0.2-0.9); Monocytes % 10.1 %; Neutrophils # 4.84 10^3/uL (1.8-7.7); Nucleated Red Blood Cells % 0 %; Platelet Count 304 10^3/cmm (157-399); Red Blood Count 5.84 10^6/uL (3.85-5.65); Red Cell Distribution Width 12.8 % (12.1-15.1); White Blood Count 7.93 10^3/uL (3.29-11.43)
[2025-02-06 09:51] LABS: Erythrocyte Sedimentation Rate 13 mm/hr (0-10)
[2025-02-06 10:25] LABS: Alanine Aminotransferase 66 U/L (0-41); Alkaline Phosphatase 93 U/L (40-130); Anion Gap 15.5 (5-19); Aspartate Amino Transferase 42 U/L (0-40); Blood Urea Nitrogen 11 mg/dL (6-20); Calcium 8.6 mg/dL (8.5-10.5); Carbon Dioxide 19 mmol/L (22-29); Chloride 109 mmol/L (98-107); Globulin 3.1 g/dL (1.3-4.6); Glomerular Filtration Rate 101.9 mL/min (90-130); Glucose 107 mg/dL (65-115); Osmolality Calculated 290 mOsm/kg (285-295); Potassium 3.5 mmol/L (3.5-5.1); Sodium 140 mmol/L (136-145); Total Bilirubin 1.5 mg/dL (0.15-1.2); Total Protein 7.1 g/dL (6.6-8.7)
[2025-02-06 10:32] LABS: Testosterone Total 461.3 ng/dL (193-740)
[2025-02-06 10:47] LABS: Ferritin 66 ng/mL (30-400); Iron 78 ug/dL (59-158); Percent Saturation 25.4 % (20-50); Total Iron Binding Capacity 306 mcg/dl; Unsaturated Iron Binding 228 ug/dL (112-347)
[2025-02-06 10:51] LABS: Lactate Dehydrogenase 182 U/L (135-225)
== END 2025-02-25 23:59 | disposition home or self-care (01) ==
PROVIDERS: PCP Physician Assistant; Visit Provider Internal Medicine
DX: Z53.9 Procedure and treatment not carried out, unspecified reason (principal)
CPT/HCPCS: 36415; 80053; 82728; 83010; 83540; 83550; 83615; 84403; 84550; 85025; 85045; 85651; 86140

== ENCOUNTER 2025-03-06 09:21 | Oncology outpatient (recurring) (ONCR) | payer BC, SELFPAY ==
[2025-03-06 10:03] LABS: Basophils # 0.1 10^3/uL (0.0-0.1); Basophils % 0.8 %; Eosinophils # 0.3 10^3/uL (0.0-0.8); Eosinophils % 3.4 %; Lymphocytes # 1.7 10^3/uL (0.8-4.8); Lymphocytes % 20.5 %; Mean Corpuscular HGB Conc 32.7 g/dL (30-55); Mean Corpuscular Hemoglobin 27.4 pg (27-33); Mean Corpuscular Volume 83.8 fl (82-101); Mean Platelet Volume 10.4 fL (7.4-10.4); Monocytes # 1.1 10^3/uL (0.2-0.9); Monocytes % 13.4 %; Neutrophils # 5.05 10^3/uL (1.8-7.7); Neutrophils % 60.5 %; Nucleated Red Blood Cells % 0 %; Platelet Count 311 10^3/cmm (157-399); Red Blood Count 5.85 10^6/uL (3.85-5.65); Red Cell Distribution Width 12.6 % (12.1-15.1); White Blood Count 8.35 10^3/uL (3.29-11.43)
[2025-03-06 10:38] LABS: Alanine Aminotransferase 56 U/L (0-41); Albumin Level 3.9 g/dL (3.5-5.2); Alkaline Phosphatase 89 U/L (40-130); Aspartate Amino Transferase 34 U/L (0-40); Blood Urea Nitrogen 12 mg/dL (6-20); Calcium 8.9 mg/dL (8.5-10.5); Carbon Dioxide 22 mmol/L (22-29); Chloride 107 mmol/L (98-107); Creatinine Clr Calc Pharmacy 191.0616; Ferritin 39 ng/mL (30-400); Globulin 2.9 g/dL (1.3-4.6); Glucose 88 mg/dL (65-115); Iron 92 ug/dL (59-158); Osmolality Calculated 289 mOsm/kg (285-295); Percent Saturation 31.5 % (20-50); Sodium 140 mmol/L (136-145); Thyroid Stimulating Hormone 2.82 uIU/mL (0.27-4.20); Total Iron Binding Capacity 292 mcg/dl; Total Protein 6.8 g/dL (6.6-8.7); Unsaturated Iron Binding 200 ug/dL (112-347); Uric Acid 4.6 mg/dL (3.4-7.0)
== END 2025-03-27 23:59 | disposition home or self-care (01) ==
PROVIDERS: PCP Physician Assistant; Visit Provider Internal Medicine
DX: E83.110 Hereditary hemochromatosis (principal); I10 Essential (primary) hypertension; Z87.891 Personal history of nicotine dependence
CPT/HCPCS: 36415; 80053; 82728; 83540; 83550; 84443; 84550; 85025

== ENCOUNTER 2025-04-11 20:00 | Oncology outpatient (recurring) (ONCR) | payer BC, SELFPAY | END 2025-04-27 23:59 | disposition home or self-care (01) | LOC: ONCMED 23:31 | PROVIDERS: PCP Physician Assistant; Visit Provider Internal Medicine | DX: E83.110 Hereditary hemochromatosis (principal); G47.36 Sleep related hypoventilation in conditions classified elsewhere | CPT/HCPCS: 95810 ==

== ENCOUNTER 2025-05-04 13:09 | Emergency (ER) | payer BC, SELFPAY ==
[2025-05-04 13:10] VITALS: BP 140/98; PULSE 103; RESP 16; TEMP 36.4; O2SAT 94; BMI 29.5
--- NOTE | 2025-05-04 13:15 | XRR_ITS ---
PROCEDURE INFORMATION: Exam: XR Chest Exam date and time: 05/04/2025 1:32 PM Age: 50 years old Clinical indication: Pain; Shortness of breath; Angina pectoris; Additional info: Cp TECHNIQUE: Imaging protocol: Radiologic exam of the chest. Views: 1 view. COMPARISON: CR XR chest 1V portable [id number] 06/28/2024 5:45 PM FINDINGS: Lungs: Unchanged scarring in the left lung base. Otherwise, unremarkable. Pleural spaces: Unremarkable. No pleural effusion. No pneumothorax. Heart/Mediastinum: Unremarkable. No cardiomegaly. Diaphragm: Unchanged mild elevation of the right hemidiaphragm. Bones/joints: Unremarkable. XR/XR chest 1V portable [id number] IMPRESSION: No acute disease.
--- NOTE | 2025-05-04 13:15 | ECG_ITS ---
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1975 Requested By: Jina Navarrete Order Number: [id number] Reading MD: CAROLINA CENTENO Measurements Intervals [place] Rate: 99 P: 69 DE: 185 QRS: 60 QRSD: 100 T: 48 QT: 342 QTc: 441 Interpretive Statements SINUS RHYTHM WITH OCCASIONAL SUPRAVENTRICULAR PREMATURE COMPLEXES PROBABLE INFERIOR MYOCARDIAL INFARCTION , PROBABLY OLD [35 ms Q WAVE IN II/aVF] Compared to ECG 10/31/2024 13:02:53 Sinus tachycardia no longer present Incomplete right bundle-branch block no longer present Myocardial infarct finding still present Electronically Signed On 05-04-2025 23:49:48 CDT by CAROLINA CENTENO [email or web address]
--- NOTE | 2025-05-04 13:41 | W.ED.CHESTPA ---
HPI - Chest Pain General: Chief Complaint: Chest Pain Stated Complaint: chest pain Time Seen by Provider: 05/04/25 13:29 History of Present Illness: 50-year-old male presents with some left-sided chest discomfort that started about an hour ago. 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 He got little bit worse with deep breaths. He seems to feel like it started after he got awiff of some kind of a chemical. Associated symptoms: Reports diaphoresis; Deny abdominal pain, fever(s), nausea or vomiting Related Data Home Medications ?Medication ?Instructions ?Recorded ?Confirmed amitriptyline 10 mg tablet 10 mg PO BEDTIME 08/13/24 05/04/25 dicyclomine 20 mg tablet 20 mg PO .@NOON 08/13/24 05/04/25 famotidine 20 mg tablet 20 mg PO DAILY 08/13/24 05/04/25 loperamide 2 mg capsule 2 mg PO BID PRN Diarrhea 08/13/24 05/04/25 pantoprazole 40 mg tablet,delayed 40 mg PO DAILY 08/13/24 05/04/25 release escitalopram oxalate 10 mg tablet 10 mg PO DAILY 01/30/25 05/04/25 (Lexapro) sildenafil 100 mg tablet (Viagra) 100 mg PO DAILY PRN activity 01/30/25 05/04/25 colestipol 1 gram tablet 1 g PO BID PRN Diarrhea 05/04/25 05/04/25 cyclobenzaprine 5 mg tablet 5 mg PO BID PRN Spasms 05/04/25 05/04/25 lisinopril 10 mg tablet 10 mg PO DAILY 05/04/25 05/04/25 Previous Rx's ?Medication ?Instructions ?Recorded diltiazem HCl 240 mg 240 mg PO DAILY #90 caps 01/30/25 capsule,extended release 24 hr (Cardizem CD) Allergies Allergy/AdvReac Type Severity Reaction Status Date / Time No Known Allergies Allergy Verified 03/06/25 10:11 Review of Systems Const: Reports: diaphoresis; Denies: fever(s) or chills Card: Reports: chest pain Resp: Reports: pain on inspiration GI: Denies: abdominal pain, nausea or vomiting Skin/Breast: Denies: rash Psych: Denies: anxiety or depression [facility] ED PFSH: Medical History GERD (gastroesophageal reflux disease) Hereditary hemochromatosis Hypertension Surgical History History of appendectomy Family History Father Hypertension Stroke Denies family history of Liver cirrhosis Iron overload Social History Smoking and tobacco/nicotine status: former use of tobacco/nicotine Quit status (tobacco/nicotine): has quit using Year quit tobacco: 2019 Former quit date comment: 15-20 years total tobacco use Alcohol intake: current Alcohol intake frequency: holidays/special occasions only Substance/Drug Use: never Physical Exam Const: COMMON NORMALS: no acute distress and patient oriented x3 Chest: CHEST: Yes Symmetrical chest wall rise Resp: COMMON NORMALS: normal respiratory effort, No use of accessory muscles and clear to auscultation bilaterally AUSCULTATION: clear to auscultation bilaterally Cardio: COMMON NORMALS: regular rate and regular rhythm RATE: regular rate RHYTHM: regular rhythm GI: COMMON NORMALS: Soft to palpation and non-tender PALPATION: Yes Soft to palpation Extremity: COMMON NORMALS: normal to inspection, full ROM and capillary refill normal Neuro: COMMON NORMALS: patient oriented x3, moves all extremities and no focal motor deficits Psych: COMMON NORMALS: mental status grossly normal, Normal thought process present and cooperative THOUGHT PROCESS: Normal thought process present Skin: COMMON NORMALS: no rashes or lesions noted GENERAL SKIN EXAM: no rashes or lesions noted Course Vital Signs: Vital signs: Vital Signs Temperature 97.6 F 05/04/25 13:10 Pulse Rate 98 05/04/25 15:23 Respiratory Rate 18 05/04/25 14:39 Blood Pressure 128/93 05/04/25 15:23 Pulse Oximetry 93 05/04/25 15:23 Oxygen Delivery Me thod Room Air 05/04/25 15:23 MDM - Chest Pain Medical Decision Making Patient's diagnostic studies were ordered reviewed and shows no acute findings. Patient with 2 negative troponins. Patient's EKGs both show sinus rhythm with questionable old changes but no new or acute changes. Patient did have improvement following breathing treatment. I suspect he likely had some mild chemical irritation from what ever it was that he smoked that made him feel sick. 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 He is stable and discharged home. Lab Data 05/04/25 13:45 05/04/25 13:45 Radiology Impressions Chest X-Ray 05/04/25 13:15 IMPRESSION: No acute disease. Laboratory Results WBC 8.31 10^3/uL (3.29-11.43) 05/04/25 13:45 RBC 5.92 10^6/uL (3.85-5.65) H 05/04/25 13:45 Hgb 16.30 g/dL (11.27-16.99) 05/04/25 13:45 Hct 50.3 % (37-53) 05/04/25 13:45 MCV 85.0 fl (82-101) 05/04/25 13:45 MCH 27.5 pg (27-33) 05/04/25 13:45 MCHC 32.4 g/dL (30-55) 05/04/25 13:45 RDW 14.9 % (12.1-15.1) 05/04/25 13:45 Plt Count 250 10^3/cmm (157-399) 05/04/25 13:45 MPV 10.0 fL (7.4-10.4) 05/04/25 13:45 Neut % (Auto) 67.8 % 05/04/25 13:45 Lymph % (Auto) 17.8 % 05/04/25 13:45 [place] % (Auto) 11.0 % 05/04/25 13:45 Eos % (Auto) 1.8 % 05/04/25 13:45 Baso % (Auto) 0.8 % 05/04/25 13:45 Neut # (Auto) 5.63 10^3/uL (1.8-7.7) 05/04/25 13:45 Lymph # (Auto) 1.5 10^3/uL (0.8-4.8) 05/04/25 13:45 [place] # (Auto) 0.9 10^3/uL (0.2-0.9) 05/04/25 13:45 Eos # (Auto) 0.2 10^3/uL (0.0-0.8) 05/04/25 13:45 Baso # (Auto) 0.1 10^3/uL (0.0-0.1) 05/04/25 13:45 Nucleated RBC % (auto) 0 % 05/04/25 13:45 Nucleated RBCs # 0.0 /100WBC 05/04/25 13:45 PT 14.00 SECONDS (12.1-14.9) 05/04/25 13:45 INR 1.01 (0.8-1.2) 05/04/25 13:45 Sodium 136 mmol/L (136-145) 05/04/25 13:45 Potassium 3.9 mmol/L (3.5-5.1) 05/04/25 13:45 Chloride 103 mmol/L (98-107) 05/04/25 13:45 Carbon Dioxide 19 mmol/L (22-29) L 05/04/25 13:45 Anion Gap 17.9 (5-19) 05/04/25 13:45 BUN 13 mg/dL (6-20) 05/04/25 13:45 Creatinine 0.9 mg/dL (0.7-1.2) 05/04/25 13:45 GFR Calculation 89.0 mL/min (90-130) L 05/04/25 13:45 Glucose 103 mg/dL (65-115) 05/04/25 13:45 Calculated Osmolality 282 mOsm/kg (285-295) L 05/04/25 13:45 Calcium 9.0 mg/dL (8.5-10.5) 05/04/25 13:45 Total Bilirubin 1.3 mg/dL (0.15-1.2) H 05/04/25 13:45 AST 25 U/L (0-40) 05/04/25 13:45 ALT 59 U/L (0-41) H 05/04/25 13:45 Alkaline Phosphatase 104 U/L (40-130) 05/04/25 13:45 Troponin T Baseline < 6 ng/L (0-15) 05/04/25 13:45 Troponin T 120 Minute < 6.0 ng/L (0-15) 05/04/25 15:45 Delta Troponin T 0 ABS# (0-10) 05/04/25 15:45 Total Protein 6.9 g/dL (6.6-8.7) 05/04/25 13:45 Albumin 4.1 g/dL (3.5-5.2) 05/04/25 13:45 Globulin 2.8 g/dL (1.3-4.6) 05/04/25 13:45 Lipase 22 U/L (13-60) 05/04/25 13:45 All radiology interpretation(s) finalized by discharge Discharge Plan Discharge Patient Disposition: Home Clinical Impression: Atypical chest pain Condition: Stable Prescriptions: No Action amitriptyline 10 mg tablet 10 mg PO BEDTIME pantoprazole 40 mg tablet,delayed release (DR/EC) 40 mg PO DAILY dicyclomine 20 mg tablet 20 mg PO .@NOON famotidine 20 mg tablet 20 mg PO DAILY loperamide 2 mg capsule 2 mg PO BID PRN (Reason: Diarrhea) escitalopram oxalate [Lexapro] 10 mg tablet 10 mg PO DAILY sildenafil [Viagra] 100 mg tablet 100 mg PO DAILY PRN (Reason: activity) Rx Instructions: administer 30 minutes to 4 hours before activity diltiazem HCl [Cardizem CD] 240 mg capsule,extended release 24hr 240 mg PO DAILY Qty: 90 3RF lisinopril 10 mg tablet 10 mg PO DAILY colestipol 1 gram tablet 1 g PO BID PRN (Reason: Diarrhea) cyclobenzaprine 5 mg tablet 5 mg PO BID PRN (Reason: Spasms) Discharge Orders: Discharge ED (Routine); Ordered 05/04/25 Ordered By: Vasquez Ratliff Referrals: Janelle Lockwood PA [Primary Care Provider, Physicians Cold Meat Cook] Discharge Diet: Usual diet Discharge Activity: Resume usual activity Patient Instructions: Chest Pain - Noncardiac, Pneumonitis (ED), Opioid Safety, Pain Management Activity Restrictions/Additional Instructions: Please follow your primary care provider for recheck if symptoms return or becomes more frequent. Return to the ER with any concerns. Print Language: Moroccan Coding Level of Care Code ED Furnace Feeder for Tony Jean
[2025-05-04 13:52] LABS: Basophils # 0.1 10^3/uL (0.0-0.1); Basophils % 0.8 %; Eosinophils # 0.2 10^3/uL (0.0-0.8); Eosinophils % 1.8 %; Hematocrit 50.3 % (37-53); Lymphocytes # 1.5 10^3/uL (0.8-4.8); Lymphocytes % 17.8 %; Mean Corpuscular HGB Conc 32.4 g/dL (30-55); Mean Corpuscular Hemoglobin 27.5 pg (27-33); Monocytes # 0.9 10^3/uL (0.2-0.9); Neutrophils # 5.63 10^3/uL (1.8-7.7); Neutrophils % 67.8 %; Nucleated Red Blood Cells % 0 %; Platelet Count 250 10^3/cmm (157-399); Red Blood Count 5.92 10^6/uL (3.85-5.65); Red Cell Distribution Width 14.9 % (12.1-15.1); White Blood Count 8.31 10^3/uL (3.29-11.43)
[2025-05-04 14:09] LABS: INR 1.01 (0.8-1.2)
[2025-05-04 14:14] LABS: Alanine Aminotransferase 59 U/L (0-41); Albumin Level 4.1 g/dL (3.5-5.2); Alkaline Phosphatase 104 U/L (40-130); Anion Gap 17.9 (5-19); Aspartate Amino Transferase 25 U/L (0-40); Blood Urea Nitrogen 13 mg/dL (6-20); Carbon Dioxide 19 mmol/L (22-29); Chloride 103 mmol/L (98-107); Creatinine Clr Calc Pharmacy 125.0538; Globulin 2.8 g/dL (1.3-4.6); Glucose 103 mg/dL (65-115); Lipase 22 U/L (13-60); Osmolality Calculated 282 mOsm/kg (285-295); Potassium 3.9 mmol/L (3.5-5.1); Sodium 136 mmol/L (136-145); Total Bilirubin 1.3 mg/dL (0.15-1.2); Total Protein 6.9 g/dL (6.6-8.7)
[2025-05-04 14:26] LABS: Troponin(5th) Baseline < 6 ng/L (0-15)
[2025-05-04] MEDS: ipratropium-albuterol 3 mL Neb INHALATION (14:37)
[2025-05-04 14:39] VITALS: PULSE 90; RESP 18; O2SAT 93
[2025-05-04 14:44] VITALS: PULSE 94
--- NOTE | 2025-05-04 15:15 | ECG_ITS ---
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
[2025-05-04 15:23] VITALS: BP 128/93; PULSE 98; O2SAT 93
[2025-05-04 16:06] LABS: Troponin 5 2HR < 6.0 ng/L (0-15); Troponin 5 2HR Delta 0 ABS# (0-10)
[2025-05-04 16:19] VITALS: BP 124/88; PULSE 94; O2SAT 94
== END 2025-05-04 16:20 | disposition home or self-care (01) ==
PROVIDERS: Emergency Medicine; Emergency Provider Student in an Organized Health Care Education/Training Program; PCP Physician Assistant
DX: R07.89 Other chest pain (principal); Z87.891 Personal history of nicotine dependence; I10 Essential (primary) hypertension
CPT/HCPCS: 36415; 71045; 80053; 83690; 84484; 85025; 85610; 93005; 94640; 99285; J9999

== ENCOUNTER 2025-08-07 15:32 | Oncology outpatient (recurring) (ONCR) | payer BC, SELFPAY ==
[2025-08-07 16:03] LABS: Hematocrit 48.3 % (37-53); Hemoglobin 16.40 g/dL (11.27-16.99); Mean Corpuscular HGB Conc 34.0 g/dL (30-55); Mean Corpuscular Hemoglobin 28.9 pg (27-33); Mean Corpuscular Volume 85.2 fl (82-101); Nucleated Red Blood Cells % 0 %; Platelet Count 300 10^3/cmm (157-399); Red Blood Count 5.67 10^6/uL (3.85-5.65); White Blood Count 6.81 10^3/uL (3.29-11.43)
[2025-08-07 16:26] LABS: Alanine Aminotransferase 42 U/L (0-41); Albumin Level 4.2 g/dL (3.5-5.2); Alkaline Phosphatase 100 U/L (40-130); Blood Urea Nitrogen 11 mg/dL (6-20); Calcium 9.1 mg/dL (8.5-10.5); Carbon Dioxide 22 mmol/L (22-29); Chloride 106 mmol/L (98-107); Ferritin 60 ng/mL (30-400); Globulin 3.2 g/dL (1.3-4.6); Glucose 80 mg/dL (65-115); Osmolality Calculated 286 mOsm/kg (285-295); Sodium 139 mmol/L (136-145); Total Protein 7.4 g/dL (6.6-8.7)
[2025-08-07 16:41] LABS: Anion Gap 15.2 (5-19); Aspartate Amino Transferase 32 U/L (0-40); Potassium 4.2 mmol/L (3.5-5.1)
== END 2025-08-27 23:59 | disposition home or self-care (01) ==
PROVIDERS: PCP Physician Assistant; Visit Provider Internal Medicine
DX: E83.110 Hereditary hemochromatosis (principal)
CPT/HCPCS: 36415; 80053; 82728; 85025